=== PATIENT | male | born 1955 | race Hispanic/Latino ===

== ENCOUNTER 2018-10-12 09:48 | Emergency (ER) | payer OTHER ==
[2018-10-12] MEDS ORDERED: SODIUM CHLORIDE 0.9% 1000ML 1,000 ML IV ONE ×2 (10:01→10:59)
[2018-10-12] MEDS ORDERED: ONDANSETRON HCL 4 MG/2 ML VIAL ONE (10:01)
[2018-10-12 10:07] LABS: BASOPHILS % (AUTO) 0.3 % (0.0-5.0); EOSINOPHILS % (AUTO) 1.7 % (0.0-8.0); HEMATOCRIT 50.2 % (42-54); LYMPHOCYTES % (AUTO) 16.6 % (21.0-51.0); MEAN CORPUSCULAR HEMOGLOBIN 30.5 pg (27.0-33.0); MEAN CORPUSCULAR HGB CONC 34.3 g/dL (32.0-36.0); MONOCYTES % (AUTO) 8.2 % (3.0-13.0); NEUTROPHILS % (AUTO) 73.2 % (40.0-77.0); NUCLEATED RED BLOOD CELLS 0.1 % (0.0-0.19); PLATELET COUNT (AUTO) 196 K/uL (130-400); RED BLOOD CELL COUNT(AUTO) 5.64 MIL/uL (4.50-6.20); RED CELL DISTRIBUTION WIDTH 13.7 % (11.0-15.5); WHITE BLOOD COUNT (AUTO) 12.3 K/uL (4.8-10.8)
[2018-10-12 10:11] LABS: APPEARANCE,URINE Cloudy (CLEAR); BILIRUBIN,URINE Negative (NEGATIVE); COLOR,URINE Dark Yellow (YELLOW); GLUCOSE, URINE (UA) Negative (NEGATIVE); KETONES,URINE Trace mg/dL (NEGATIVE); LEUKOCYTE ESTERASE ,URINE Trace (NEGATIVE); NITRATE,URINE Negative (NEGATIVE); OCCULT BLOOD,URINE Negative (NEGATIVE); PH,URINE 5.5 (5.0-8.0); PROTEIN,URINE POS 1+ mg/dL (NEGATIVE)
[2018-10-12 10:14] LABS: POTASSIUM 4.2 mmol/L (3.5-5.1)
[2018-10-12 10:19] LABS: ALBUMIN 4.4 g/dL (3.5-5.0); BILIRUBIN,TOTAL 0.7 mg/dL (0.2-1.0)
[2018-10-12 10:23] LABS: BACTERIA,URINE Few /HPF (None Seen); MUCUS,URINE Many LPF (None Seen); RBC,URINE 0-1 /HPF (0-1); SQUAMOUS EPITHELIAL CELL,UR 0-2 /HPF (0-2)
== END 2018-10-12 12:54 | disposition home or self-care (01) ==
LOC: EDH 09:48
DX: K52.9 Noninfective gastroenteritis and colitis, unspecified (principal); I10 Essential (primary) hypertension; E78.5 Hyperlipidemia, unspecified; G20 Parkinson's disease
CPT/HCPCS: 36415; 80053; 81001; 83690; 85025; 93005; 96361; 96374; 99285; J2405; J7030 ×2

== ENCOUNTER 2021-05-13 19:26 | Emergency (ER) | payer OTHER ==
[~2021-05-13] VITALS: Ht 177.8 cm; Wt 104.3 kg
[2021-05-13 20:36] LABS: HEMATOCRIT 45.7 % (42-54); MEAN CORPUSCULAR HEMOGLOBIN 28.8 pg (27.0-33.0); RED BLOOD CELL COUNT(AUTO) 5.25 MIL/uL (4.50-6.20); RED CELL DISTRIBUTION WIDTH 13.3 % (11.0-15.5); WHITE BLOOD COUNT (AUTO) 8.5 K/uL (4.8-10.8)
[2021-05-13 20:39] LABS: APPEARANCE,URINE Clear (CLEAR); BILIRUBIN,URINE Negative (NEGATIVE); COLOR,URINE Yellow (YELLOW); GLUCOSE, URINE (UA) Negative (NEGATIVE); KETONES,URINE Negative (NEGATIVE); LEUKOCYTE ESTERASE ,URINE Trace (NEGATIVE); NITRATE,URINE Negative (NEGATIVE); OCCULT BLOOD,URINE Negative (NEGATIVE); PH,URINE 5.5 (5.0-8.0); PROTEIN,URINE Negative (NEGATIVE)
[2021-05-13 20:44] LABS: BACTERIA,URINE Few /HPF (None Seen); MUCUS,URINE Rare LPF (None Seen); RBC,URINE 0-1 /HPF (0-1); SQUAMOUS EPITHELIAL CELL,UR Rare /HPF (0-2)
[2021-05-13 20:44] LABS: CREATININE 0.8 mg/dL (0.5-1.5); POTASSIUM 4.2 mmol/L (3.5-5.1)
[2021-05-13 20:50] LABS: ALBUMIN 3.9 g/dL (3.5-5.0); BILIRUBIN,TOTAL 0.3 mg/dL (0.2-1.0); TOTAL PROTEIN, SERUM 7.8 g/dL (6.0-8.3)
[2021-05-13] MEDS ORDERED: IBUP-2077 PO (22:05)
[2021-05-13 22:06] VITALS: BP 125/78
== END 2021-05-13 22:18 | disposition home or self-care (01) ==
LOC: EDH 19:26
DX: U07.1 COVID-19 (principal); R53.1 Weakness; I10 Essential (primary) hypertension; E78.00 Pure hypercholesterolemia, unspecified; Z98.890 Other specified postprocedural states; Z79.899 Other long term (current) drug therapy
CPT/HCPCS: 36415; 70450; 80053; 81001; 83690; 85027; 87635; 87804 ×2; 93005; 99285; C9803

== ENCOUNTER → 2023-03-16 | Outpatient (CLI) | payer OTHER, MEDICARE ==
[~2023-03-16] MED LIST: IBUP-2077 PO
== END | disposition home or self-care (01) ==
LOC: RAH 12:51
PROVIDERS: ATTEND Internal Medicine Gastroenterology
DX: R13.10 Dysphagia, unspecified (principal); R63.30 Feeding difficulties, unspecified; R10.30 Lower abdominal pain, unspecified
CPT/HCPCS: 74230; 92611

== ENCOUNTER → 2023-12-29 | Outpatient (CLI) | payer OTHER, MEDICARE ==
[~2023-12-29] VITALS: Ht 177.8 cm; Wt 97.3 kg
[~2023-12-29] MED LIST changes: +AEC81 PO; +BACL5TAB PO; +CARB1TAB42 PO; +CITA10TA89 PO; +DOCU100C33 PO; +FLUT16H NASAL; +GABA300C PO; +HYDR-3830 PO; +IBUP-2070 PO; +INVANZ 1GM+NS 50ML IVPB 50 ML IV ONE; +LEVE500T19 PO; +LEVE500T98 PO; +LISI30TA4 PO; +MIRA25TA PO; +PRAV10TA39 PO; +ROTI1PAT8 TD
[2023-12-29 16:08] LABS: BASOPHILS # (AUTO) 0.03 K/uL (0.00-0.20); BASOPHILS % (AUTO) 0.5 % (0.0-5.0); EOSINOPHILS # (AUTO) 0.24 K/uL (0.00-0.70); EOSINOPHILS % (AUTO) 4.4 % (0.0-8.0); HEMATOCRIT 42.2 % (42-54); IMMATURE GRANULOCYTE ABSOLUTE 0.01 K/uL (0-1); LYMPHOCYTES # (AUTO) 1.1 K/uL (1.0-4.8); LYMPHOCYTES % (AUTO) 19.6 % (21.0-51.0); MEAN CORPUSCULAR HEMOGLOBIN 31.2 pg (27.0-33.0); MEAN CORPUSCULAR HGB CONC 34.4 g/dL (32.0-36.0); MEAN CORPUSCULAR VOLUME 90.8 fL (79-99); MONOCYTES # (AUTO) 0.5 K/uL (0.1-1.0); MONOCYTES % (AUTO) 9.7 % (3.0-13.0); NEUTROPHILS # (AUTO) 3.6 K/uL (1.8-7.7); NEUTROPHILS % (AUTO) 65.6 % (40.0-77.0); PLATELET COUNT (AUTO) 145 K/uL (130-400); RED BLOOD CELL COUNT(AUTO) 4.65 MIL/uL (4.50-6.20); RED CELL DISTRIBUTION WIDTH 13.2 % (11.0-15.5); WHITE BLOOD COUNT (AUTO) 5.5 K/uL (4.8-10.8)
[2023-12-29 16:21] LABS: INR 1.04 (0.85-1.15); PROTHROMBIN TIME 11.2 SEC (9.6-11.6)
[2023-12-29 16:22] LABS: PARTIAL THROMBOPLASTIN TIME 26.8 SEC (26.3-35.5)
[2023-12-29 16:23] LABS: ALBUMIN 3.9 g/dL (3.5-5.0); BILIRUBIN,TOTAL 0.7 mg/dL (0.2-1.0); CREATININE 0.8 mg/dL (0.5-1.3); POTASSIUM 4.1 mmol/L (3.5-5.1); TOTAL PROTEIN, SERUM 7.4 g/dL (6.0-8.3)
[2023-12-29 16:44] VITALS: BP 140/88; PULSE 60; RESP 16; TEMP 98.2
== END | disposition home or self-care (01) ==
LOC: DAH 10:00 → EDSTATUS 01-05 07:30
PROVIDERS: ATTEND Surgery
DX: R00.1 Bradycardia, unspecified (principal); C20 Malignant neoplasm of rectum; Z86.2 Personal history of diseases of the blood and blood-forming organs and certain disorders involving the immune mechanism
CPT/HCPCS: 86900; 80053; 85025; 85610; 85730; 86850; 86901; 36415; 93005; A6260; J1335

== ENCOUNTER 2024-01-17 15:00 | Inpatient (IN) | payer OTHER, MEDICARE ==
[~2024-01-17] VITALS: Ht 177.8 cm; Wt 96.6 kg
[~2024-01-17 15:00] MED LIST changes: -FLUT16H NASAL; -IBUP-2070 PO; -IBUP-2077 PO; -INVANZ 1GM+NS 50ML IVPB 50 ML IV ONE; -LEVE500T98 PO
[2024-01-21 13:02] LABS: BASOPHILS # (AUTO) 0.04 K/uL (0.00-0.20); BASOPHILS % (AUTO) 0.7 % (0.0-5.0); EOSINOPHILS # (AUTO) 0.12 K/uL (0.00-0.70); EOSINOPHILS % (AUTO) 2.1 % (0.0-8.0); HEMATOCRIT 43.6 % (42-54); IMMATURE GRANULOCYTE ABSOLUTE 0.01 K/uL (0-1); LYMPHOCYTES # (AUTO) 1.1 K/uL (1.0-4.8); LYMPHOCYTES % (AUTO) 18.9 % (21.0-51.0); MEAN CORPUSCULAR HEMOGLOBIN 30.9 pg (27.0-33.0); MEAN CORPUSCULAR HGB CONC 34.4 g/dL (32.0-36.0); MEAN CORPUSCULAR VOLUME 89.7 fL (79-99); MONOCYTES # (AUTO) 0.6 K/uL (0.1-1.0); MONOCYTES % (AUTO) 9.9 % (3.0-13.0); NEUTROPHILS % (AUTO) 68.2 % (40.0-77.0); PLATELET COUNT (AUTO) 151 K/uL (130-400); RED BLOOD CELL COUNT(AUTO) 4.86 MIL/uL (4.50-6.20); RED CELL DISTRIBUTION WIDTH 12.8 % (11.0-15.5); WHITE BLOOD COUNT (AUTO) 5.8 K/uL (4.8-10.8)
[2024-01-21 13:05] VITALS: BP 139/84; PULSE 64; RESP 16; TEMP 97.3
[2024-01-21 13:07] LABS: INR 1.07 (0.85-1.15); PROTHROMBIN TIME 11.5 SEC (9.6-11.6)
[2024-01-21 13:09] LABS: PARTIAL THROMBOPLASTIN TIME 27.7 SEC (26.3-35.5)
[2024-01-21 13:11] LABS: ALBUMIN 4.1 g/dL (3.5-5.0); BILIRUBIN,TOTAL 0.7 mg/dL (0.2-1.0); CREATININE 0.8 mg/dL (0.5-1.3); POTASSIUM 4.2 mmol/L (3.5-5.1); TOTAL PROTEIN, SERUM 7.7 g/dL (6.0-8.3)
[2024-01-21] MEDS ORDERED: LACT10SO9 PO (14:17)
[2024-01-25] VITALS (29 sets, daily range): BP systolic 124–150; BP diastolic 63–89; PULSE 64–95; RESP 14–20; TEMP 97.1–98.2; O2SAT 95–100
[2024-01-25] MEDS: LIDOCAINE HCL 1% 10 ML VIAL ONE
[2024-01-25] MEDS: BUPIvacaine/PF 0.25% 30ML VIAL IJ ONE
[2024-01-25] MEDS: LIDOCAINE HCL 1% 20 ML VIAL ONE
[2024-01-25] MEDS: EPINEPHrine PF 1MG (1:1,000) 1 MG/ML AMP ONE
[2024-01-25] MEDS: FAMOTIDINE 20MG VIAL IV ONE (08:10)
[2024-01-25] MEDS: acetaMINOPHEN 1,000 MG/100 ML VIAL IV ONE (08:10)
[2024-01-25] MEDS ORDERED: ketaMINE 50MG/ML SYRINGE 50 MG/ML DISP.SYRIN ONE (08:11)
[2024-01-25] MEDS ORDERED: rocuRONium bROMide 10MG/1ML 5ML VL ONE ×2 (08:12→09:16)
[2024-01-25] MEDS ORDERED: proPOFol 10 MG/ML 20ML VIAL IV ONE (08:12)
[2024-01-25] MEDS ORDERED: FENTanyl CITRate PF 50 MCG/1 ML 2ML VIAL ONE (08:12)
[2024-01-25] MEDS ORDERED: LIDOCAINE PF 100MG/5ML (2%) SYRINGE 5ML ONE (08:12)
[2024-01-25] MEDS: LACTATED RINGERS 1000ML 1,000 ML IV ONE (08:27)
[2024-01-25] MEDS ORDERED: dexaMETHasone SOD PHOSPHATE 10MG/ML 1ML VIAL ONE (08:47)
[2024-01-25] MEDS ORDERED: ondanSETRON 4MG INJ ONE (08:47)
[2024-01-25] MEDS ORDERED: MIDAZOLAM HCL 1 MG/ML 2ML VIAL ONE (08:52)
[2024-01-25] MEDS ORDERED: ePHEDrine SULFate 50 MG/ML AMPULE ONE (08:56)
[2024-01-25] MEDS: MEROPENEM 1 GM VIAL ONE (09:00)
[2024-01-25] MEDS: INDOCYANINE GREEN 25 MG VIAL IJ ONE (10:44)
[2024-01-25] MEDS ORDERED: GLYCOPYRROLATE 0.2 MG/ML 5 ML VIAL ONE (12:07)
[2024-01-25] MEDS ORDERED: NEOSTIGMINE METHYLSULFATE 1MG/ML IV ONE (12:07)
[2024-01-25] MEDS ORDERED: ondanSETRON 4MG INJ IVP PRN (13:30)
[2024-01-25] MEDS ORDERED: INSULIN humuLIN R 100 UNIT/ML 3ML SQ PRN (13:30)
[2024-01-25] MEDS: FENTanyl CITRate PF 50 MCG/1 ML 2ML VIAL ONE (13:37)
[2024-01-25] MEDS: hydroMORPHone 0.5 MG SYG (0.5MG/0.5ML) IVP PRN (15:53)
[2024-01-25] MEDS: OXYcodONE HCL 5 MG TAB PO PRN (18:05)
[2024-01-25] MEDS: acetaMINOPHEN 325 MG TAB PO SCH (18:06)
[2024-01-25] MEDS ORDERED: hydroMORPHone 1 MG INJ IVP ONE (20:00)
[2024-01-25] MEDS ORDERED: hydrOXYzine 10 MG TABLET PO PRN (20:00)
[2024-01-25] MEDS: hydroMORPHone 1 MG INJ IVP ONE (20:03)
[2024-01-25] MEDS: BACLOFEN 10 MG TABLET PO SCH (21:50)
[2024-01-25] MEDS: GABApentin 100 MG CAPSULE PO SCH (21:50)
[2024-01-25] MEDS: CARBIDOPA/LEVODOPA ER 50-200 1 EACH TABLET.ER PO SCH (21:50)
[2024-01-25] MEDS: simVASTatin 10 MG TABLET PO SCH (21:50)
[2024-01-25] MEDS: leveTIRACEtam 500 MG TABLET PO SCH (21:50)
[2024-01-25] MEDS: PANTOPrazole 40 MG/VIAL IVP SCH (21:51)
[2024-01-25] MEDS: LACTATED RINGERS 1000ML 1,000 ML IV SCH (22:05)
[2024-01-26 04:00] VITALS: BP 144/76; PULSE 71; RESP 20; TEMP 97.8
[2024-01-26 05:16] LABS: BASOPHILS # (AUTO) 0.02 K/uL (0.00-0.20); BASOPHILS % (AUTO) 0.2 % (0.0-5.0); HEMATOCRIT 39.1 % (42-54); IMMATURE GRANULOCYTE ABSOLUTE 0.03 K/uL (0-1); LYMPHOCYTES # (AUTO) 0.8 K/uL (1.0-4.8); LYMPHOCYTES % (AUTO) 8.1 % (21.0-51.0); MEAN CORPUSCULAR HEMOGLOBIN 31.4 pg (27.0-33.0); MEAN CORPUSCULAR HGB CONC 34.3 g/dL (32.0-36.0); MEAN CORPUSCULAR VOLUME 91.6 fL (79-99); MONOCYTES # (AUTO) 1.1 K/uL (0.1-1.0); MONOCYTES % (AUTO) 11.1 % (3.0-13.0); NEUTROPHILS % (AUTO) 80.3 % (40.0-77.0); PLATELET COUNT (AUTO) 135 K/uL (130-400); RED BLOOD CELL COUNT(AUTO) 4.27 MIL/uL (4.50-6.20); RED CELL DISTRIBUTION WIDTH 12.7 % (11.0-15.5); WHITE BLOOD COUNT (AUTO) 9.9 K/uL (4.8-10.8)
[2024-01-26 05:26] LABS: CREATININE 0.9 mg/dL (0.5-1.3)
[2024-01-26] MEDS: ENOXAPARIN SODIUM 40 MG/0.4 ML SYRINGE SQ SCH (05:38)
[2024-01-26 08:00] VITALS: BP 130/86; PULSE 87; RESP 18; TEMP 97.8
[2024-01-26] MEDS: MIRABEGRON 25 MG PO SCH (09:00)
[2024-01-26] MEDS: ROTIGOTINE TD SCH (09:00)
[2024-01-26] MEDS: LISINOPRIL 10 MG TABLET PO SCH (09:30)
[2024-01-26] MEDS: citaLOPram 20 MG TABLET PO SCH (09:32)
[2024-01-26 09:35] VITALS: O2SAT 100
[2024-01-26 12:00] VITALS: BP 131/82; PULSE 68; RESP 18; TEMP 97.9
[2024-01-26 16:00] VITALS: BP 127/73; PULSE 70; RESP 18; TEMP 98.1
[2024-01-26 20:00] VITALS: BP 113/78; PULSE 66; RESP 18; TEMP 97.4; O2SAT 100
[2024-01-27] VITALS (8 sets, daily range): BP systolic 90–136; BP diastolic 60–83; PULSE 59–74; RESP 18; TEMP 97.5–98.5; O2SAT 100
[2024-01-27 06:14] LABS: BASOPHILS # (AUTO) 0.03 K/uL (0.00-0.20); BASOPHILS % (AUTO) 0.4 % (0.0-5.0); EOSINOPHILS # (AUTO) 0.08 K/uL (0.00-0.70); EOSINOPHILS % (AUTO) 1.2 % (0.0-8.0); IMMATURE GRANULOCYTE ABSOLUTE 0.02 K/uL (0-1); LYMPHOCYTES # (AUTO) 0.8 K/uL (1.0-4.8); LYMPHOCYTES % (AUTO) 12.3 % (21.0-51.0); MEAN CORPUSCULAR HEMOGLOBIN 31.3 pg (27.0-33.0); MEAN CORPUSCULAR HGB CONC 34.3 g/dL (32.0-36.0); MEAN CORPUSCULAR VOLUME 91.1 fL (79-99); MONOCYTES # (AUTO) 0.6 K/uL (0.1-1.0); MONOCYTES % (AUTO) 9.5 % (3.0-13.0); NEUTROPHILS # (AUTO) 5.2 K/uL (1.8-7.7); NEUTROPHILS % (AUTO) 76.3 % (40.0-77.0); PLATELET COUNT (AUTO) 111 K/uL (130-400); RED BLOOD CELL COUNT(AUTO) 4.06 MIL/uL (4.50-6.20); RED CELL DISTRIBUTION WIDTH 12.7 % (11.0-15.5); WHITE BLOOD COUNT (AUTO) 6.8 K/uL (4.8-10.8)
[2024-01-27 06:15] LABS: CREATININE 0.8 mg/dL (0.5-1.3); POTASSIUM 3.7 mmol/L (3.5-5.1)
[2024-01-27] MEDS: DIPHENOXYLATE HCL/ATROPINE 2.5/0.025 MG TAB PO SCH (06:25)
[2024-01-28 00:14] VITALS: BP 116/63; PULSE 60; RESP 18; TEMP 97.9
[2024-01-28 04:22] VITALS: BP 115/70; PULSE 56; RESP 18; TEMP 98.2
[2024-01-28 06:04] LABS: BASOPHILS # (AUTO) 0.02 K/uL (0.00-0.20); BASOPHILS % (AUTO) 0.3 % (0.0-5.0); EOSINOPHILS # (AUTO) 0.15 K/uL (0.00-0.70); EOSINOPHILS % (AUTO) 2.5 % (0.0-8.0); HEMATOCRIT 36.2 % (42-54); IMMATURE GRANULOCYTE ABSOLUTE 0.02 K/uL (0-1); LYMPHOCYTES # (AUTO) 0.8 K/uL (1.0-4.8); LYMPHOCYTES % (AUTO) 14.1 % (21.0-51.0); MEAN CORPUSCULAR HEMOGLOBIN 31.2 pg (27.0-33.0); MEAN CORPUSCULAR HGB CONC 34.3 g/dL (32.0-36.0); MEAN CORPUSCULAR VOLUME 91.2 fL (79-99); MONOCYTES # (AUTO) 0.6 K/uL (0.1-1.0); MONOCYTES % (AUTO) 9.2 % (3.0-13.0); NEUTROPHILS # (AUTO) 4.4 K/uL (1.8-7.7); NEUTROPHILS % (AUTO) 73.6 % (40.0-77.0); PLATELET COUNT (AUTO) 114 K/uL (130-400); RED BLOOD CELL COUNT(AUTO) 3.97 MIL/uL (4.50-6.20); RED CELL DISTRIBUTION WIDTH 12.5 % (11.0-15.5)
[2024-01-28 06:10] LABS: CREATININE 0.8 mg/dL (0.5-1.3); POTASSIUM 3.3 mmol/L (3.5-5.1)
[2024-01-28 07:50] VITALS: BP 112/70; PULSE 55; RESP 18; TEMP 97.7
[2024-01-28 08:00] VITALS: O2SAT 95
[2024-01-28 10:39] VITALS: TEMP 97.7
== END 2024-01-28 11:45 | DRG 331 ==
LOC: DAHIP 01-25 08:07 → 3DH 01-25 14:15
PROVIDERS: ADMIT Surgery; ATTEND Surgery
PROC: 0DTP4ZZ Resection of Rectum, Percutaneous Endoscopic Approach (ICD-10-PCS; 2024-01-25)
PROC: 8E0W4CZ Robotic Assisted Procedure of Trunk Region, Percutaneous Endoscopic Approach (ICD-10-PCS; 2024-01-25)
PROC: 0D1B4Z4 Bypass Ileum to Cutaneous, Percutaneous Endoscopic Approach (ICD-10-PCS; principal; 2024-01-25 08:35)
DX: C20 Malignant neoplasm of rectum (principal); R73.9 Hyperglycemia, unspecified; R13.10 Dysphagia, unspecified; K29.70 Gastritis, unspecified, without bleeding; D50.9 Iron deficiency anemia, unspecified; I10 Essential (primary) hypertension; G20.A1 Parkinson's disease without dyskinesia, without mention of fluctuations; F32.A Depression, unspecified; Z80.0 Family history of malignant neoplasm of digestive organs; Z86.19 Personal history of other infectious and parasitic diseases; Z80.42 Family history of malignant neoplasm of prostate
CPT/HCPCS: 36415; 45330; 80048; 80053; 82948; 85025; 85610; 85730; 86850; 86900; 86901; 93005; A4344; G0378; J0171; J1100; J1170; J1650; J2001; J2185; J2250; J2405; J2470; J2704; J2710; J3010; J3490; J7030; J7120; A4215; A4216; A4221; A4222; A4223; A4600; A4649; A4663; A4930; A6260; C1769; J0665

== ENCOUNTER 2024-04-14 13:00 | Inpatient (IN) | payer OTHER, MEDICARE ==
[2024-04-13 13:19] LABS: BASOPHILS # (AUTO) 0.03 K/uL (0.00-0.20); BASOPHILS % (AUTO) 0.5 % (0.0-5.0); EOSINOPHILS # (AUTO) 0.13 K/uL (0.00-0.70); EOSINOPHILS % (AUTO) 2.4 % (0.0-8.0); HEMATOCRIT 38.8 % (42-54); IMMATURE GRANULOCYTE ABSOLUTE 0.01 K/uL (0-1); LYMPHOCYTES % (AUTO) 17.2 % (21.0-51.0); MEAN CORPUSCULAR HEMOGLOBIN 30.9 pg (27.0-33.0); MEAN CORPUSCULAR HGB CONC 34.3 g/dL (32.0-36.0); MONOCYTES # (AUTO) 0.5 K/uL (0.1-1.0); MONOCYTES % (AUTO) 8.7 % (3.0-13.0); NEUTROPHILS # (AUTO) 3.9 K/uL (1.8-7.7); PLATELET COUNT (AUTO) 142 K/uL (130-400); RED BLOOD CELL COUNT(AUTO) 4.31 MIL/uL (4.50-6.20); RED CELL DISTRIBUTION WIDTH 13.4 % (11.0-15.5); WHITE BLOOD COUNT (AUTO) 5.5 K/uL (4.8-10.8)
[2024-04-13 13:32] LABS: INR 1.02 (0.85-1.15)
[2024-04-13 13:33] LABS: PARTIAL THROMBOPLASTIN TIME 25.1 SEC (26.3-35.5)
[2024-04-13 13:40] LABS: ALBUMIN 3.8 g/dL (3.5-5.0); POTASSIUM 4.3 mmol/L (3.5-5.1); TOTAL PROTEIN, SERUM 7.3 g/dL (6.0-8.3)
[2024-04-13 13:53] VITALS: BP 100/72; PULSE 68; RESP 19; TEMP 97.6
--- NOTE | 2024-04-13 14:04 | EKG ---
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
[~2024-04-14] VITALS: Ht 175.3 cm; Wt 98.9 kg
[~2024-04-14 13:00] MED LIST changes: +DIPH-1150 PO; -DOCU100C33 PO; -GABA300C PO; -HYDR-3830 PO; -LISI30TA4 PO; -ROTI1PAT8 TD
--- NOTE | 2024-04-17 16:42 | NUR ---
report reported ekg to dr jamison. ok to proceed
[2024-04-18] VITALS (31 sets, daily range): BP systolic 110–145; BP diastolic 63–91; PULSE 60–89; RESP 14–18; TEMP 97.5–98.3; O2SAT 97
[2024-04-18] MEDS ORDERED: SUCCINYLCHOLINE CHLORIDE 20 MG/ML 10 ML VIAL ONE (09:25)
[2024-04-18] MEDS ORDERED: proPOFol 10 MG/ML 20ML VIAL IV ONE (09:25)
[2024-04-18] MEDS ORDERED: GLYCOPYRROLATE 0.2 MG/ML 5 ML VIAL ONE (09:25)
[2024-04-18] MEDS ORDERED: LIDOCAINE PF 100MG/5ML (2%) SYRINGE 5ML ONE (09:25)
[2024-04-18] MEDS ORDERED: ondanSETRON 4MG INJ ONE (09:25)
[2024-04-18] MEDS ORDERED: NEOSTIGMINE METHYLSULFATE 1MG/ML IV ONE (09:25)
[2024-04-18] MEDS ORDERED: dexaMETHasone SOD PHOSPHATE 10MG/ML 1ML VIAL ONE (09:25)
[2024-04-18] MEDS ORDERED: FENTanyl CITRate PF 50 MCG/1 ML 2ML VIAL ONE (09:26)
[2024-04-18] MEDS ORDERED: rocuRONium bROMide 10MG/1ML 5ML VL ONE ×2 (09:26→11:31)
[2024-04-18] MEDS ORDERED: MIDAZOLAM HCL 1 MG/ML 2ML VIAL ONE (09:26)
[2024-04-18] MEDS ORDERED: LISI10TA24 PO (09:42)
[2024-04-18] MEDS: MEROPENEM 1 GM VIAL ONE (09:42)
[2024-04-18] MEDS: LACTATED RINGERS 1000ML 1,000 ML IV ONE (09:43)
[2024-04-18] MEDS: FAMOTIDINE 20MG VIAL IV ONE (11:22)
[2024-04-18] MEDS: SUGAMMADEX SODIUM 200 MG/2 ML VIAL IV ONE (11:22)
[2024-04-18] MEDS: BUPIvacaine/PF 0.25% 30ML VIAL IJ ONE (12:23)
[2024-04-18] MEDS: LIDOCAINE 1%-EPI 1:100,000 20 ML VIAL ONE (12:23)
[2024-04-18] MEDS: FENTanyl CITRate PF 50 MCG/1 ML 2ML VIAL ONE ×2 (13:38→14:15)
[2024-04-18] MEDS ORDERED: INSULIN humuLIN R 100 UNIT/ML 3ML SQ PRN (14:00)
[2024-04-18] MEDS: LACTATED RINGERS 1000ML 1,000 ML IV SCH (14:00)
[2024-04-18] MEDS: acetaMINOPHEN 325 MG TAB PO SCH (14:00)
[2024-04-18] MEDS ORDERED: HYDROcodone/APAP 5/325 1 TAB TABLET PO PRN (14:00)
[2024-04-18] MEDS ORDERED: ondanSETRON 4MG INJ IVP PRN ×2 (14:00→16:00)
[2024-04-18] MEDS: hydroMORPHone 1 MG INJ ONE (14:26)
[2024-04-18] MEDS ORDERED: PoTASSium chloRIDE 20MEQ ER 20 MEQ ERTAB PO PRN (16:00)
[2024-04-18] MEDS ORDERED: hydrALAZine 20MG/ML VIAL IV PRN (16:00)
[2024-04-18] MEDS ORDERED: acetaMINOPHEN 325 MG TAB PO PRN (16:00)
[2024-04-18] MEDS ORDERED: PoTASSium chl 10% ELIXIR 20MEQ 20 MEQ/15 ML UDCUP PO PRN (16:00)
[2024-04-18] MEDS ORDERED: PoTASSium chloRIDE 20MEQ/100ML 100 ML IV PRN (16:00)
--- NOTE | 2024-04-18 16:27 | CONS ---
[facility] CONSULTATION NOTE Date of Service: Apr 18, 2024 Reason for Consultation: [ Medical Management] Requesting Physician: [Dr. Ignacio Ramos ] HISTORY OF PRESENT ILLNESS: [This is a 68-year-old male with history of malignant neoplasm of the rectum that was seen and examined by [place] digestive specialist who is being admitted today status post ileostomy closure and small-bowel resection. Patient has past medical history of hypertension, Parkinson's disease, depression, hyperlipidemia, gastritis, polyps, H pylori, seizure disorder, iron deficiency anemia, dysphagia, benign neoplasm of descending colon, chronic idiopathic constipation. Patient is hemodynamically stable. He was referred to the hospitalist for medical management. Patient was evaluated in room 301. He is alert oriented x3. we will follow recommendations and post op orders from Dr. Ramos.] REVIEW OF SYSTEMS CONSTITUTIONAL: Denies fevers, chills, or night sweats. No unintentional weight loss reported. NEUROLOGICAL: Denies headache, amaurosis fugax, motor weakness, sensory deficit, vertigo/spinning sensation, gait abnormalities, or tremors. ENT: No hearing loss, otalgia, otorrhea, rhinitis, rhinorrhea, hoarseness, or sore throat. CARDIOVASCULAR: Denies any exertional angina, dyspnea on exertion, orthopnea, paroxysmal nocturnal dyspnea, palpitations, life-threatening arrhythmias, claudication. PULMONARY: Denies any shortness of breath, cough, phlegm/sputum, hemoptysis, pleuritic chest pain. SLEEP: Denies morning headaches, daytime somnolence or napping. Denies difficulty falling asleep, staying asleep, waking from sleep. Denies knowledge of snoring. GASTROINTESTINAL: Denies any type of dysphagia to either liquids or solids. Denies nausea, vomiting, pyrosis, early satiety, abdominal pain, diarrhea, co nstipation, or changes in stool consistency or caliber. Denies coffee-ground emesis, hematemesis, hematochezia, or melanotic stools. GENITOURINARY: Denies frequency, urgency, nocturia, hematuria or incontinence (Storage/Irritative symptoms.) Low urinary stream, straining to void, urinary intermittency or hesitancy, splitting of the voiding stream, terminal dribbling. ENDOCRINOLOGIC: Denies polyuria, polydipsia, polyphagia or heat/cold intolerances. HEMATOLOGIC: Denies thrombophilia/previous clots, or coagulopathy/bleeding disorders. ONCOLOGIC: Denies personal history of malignancy. DERMATOLOGIC: Denies rashes or pruritus. PSYCHIATRIC: Denies any suicidal or homicidal ideation. Denies hallucinations. PAST MEDICAL HISTORY: [Hypertension, Parkinson's disease, depression, hyperlipidemia, gastritis, polyps, H pylori, seizure disorder, iron deficiency anemia, dysphagia common benign neoplasm of the ascending colon, chronic idiopathic constipation ] PAST SURGICAL HISTORY: [Neurostimulator implant for Parkinson's, EGD/colonoscopy on 01/25/2023, EUS/ flex sigmoid 03/02/2023, flex sigmoid for 1124, EUS 11/25/2023, LAR 01/25/24 ] PAST SOCIAL HISTORY: [Patient denies tobacco, alcohol or illicit drug use ] FAMILY HISTORY: [Noncontributory ] Coded Allergies: No Known Allergies (Unverified Allergy, Unknown, 10/12/18) PHYSICAL EXAM GENERAL APPEARANCE: The patient is awake, alert, and oriented, in no acute cardiopulmonary distress. NEUROLOGICAL: Cranial nerves II-XII grossly intact. Motor is 5/5 in bilateral upper and lower extremities proximal to distal. No sensory deficits. HEENT: Face is symmetric. Pupils are equal and reactive. Extraocular movements are intact. NECK: Supple. No JVD. No thyromegaly. No submental, submandibular, pre- /postauricular, occipital or supraclavicular lymphadenopathy. CHEST: Normal chest expansion. No Telemetry. LUNGS: Absence of any rales, rhonchi or any wheezing. CARDIOVASCULAR: Regular. S1 and S2 normal. No appreciable rubs, murmurs or gallops. ABDOMEN: Soft, nontender, and nondistended. There is no rebound, voluntary guarding, or rigidity. : Deferred. No [place]. EXTREMITIES: Non-edematous and not cyanotic. No clubbing. Good capillary refill. SKIN: No skin breakdown. Vital Sign (Last 24 Hours) 04/18/24 04/18/24 13:19 15:19 Temp 97.5 Pulse 79 Resp 16 B/P (MAP) 116/65 Pulse Ox 98 O2 Delivery Nasal Cannula O2 Flow Rate 2.0 LABS: DIAGNOSTICS / RADIOLOGY: [ ] ASSESSMENT: [Malignant neoplasm of rectum, status post closure of ileostomy small bowel resection POA Enterostomy complication, POA ] PLAN: [Admit to medical floor Status post ileostomy closure and smile bowel resection We will follow postop recommendations from surgeon Continue with pain management Home medication has been reviewed and reconciled We will request stat labs now We will request morning labs in a.m. GI and DVT prophylaxis Patient is a full code Patient was seen and evaluated with Dr. Spencer, above plan was formulated] ADVANCED CARE PLANNING 1. Which of the following were discussed? Hospice Care - Yes / No Therapeutic options - Yes / No Advance Directives - Yes / No Other discussions - 2. Discussed with who? Full code 3. Voluntary nature of this service was explained to the patient? Yes / No 4. Amount of time spent - __20 mins 5. Reviewed by Physician? (if this service was performed by NPP) Yes / No ATTESTATION BY PHYSICIAN I have seen and examined the patient. I reviewed the documentation, medical decision making, and treatment plan as noted by the mid-level provider above. I agree with the findings and plan of care. RIVER SPENCER MD, [facility] Apr 18, 2024 16:27
[2024-04-18 17:04] LABS: HEMATOCRIT 37.1 % (42-54); MEAN CORPUSCULAR HEMOGLOBIN 30.8 pg (27.0-33.0); MEAN CORPUSCULAR HGB CONC 34.8 g/dL (32.0-36.0); MEAN CORPUSCULAR VOLUME 88.5 fL (79-99); RED BLOOD CELL COUNT(AUTO) 4.19 MIL/uL (4.50-6.20); RED CELL DISTRIBUTION WIDTH 13.3 % (11.0-15.5); WHITE BLOOD COUNT (AUTO) 7.7 K/uL (4.8-10.8)
[2024-04-18 17:22] LABS: POTASSIUM 3.9 mmol/L (3.5-5.1)
--- NOTE | 2024-04-18 17:23 | OP ---
Operative Note: DATE OF PROCEDURE: 04/18/24 SURGEON: HEBER BRASHER MD SURGICAL ATTENDANT: None ANESTHESIA: General ANESTHESIOLOGIST/METALIZER FIELD OPERATION: METALIZER FIELD OPERATION PREOPERATIVE DIAGNOSIS: Ileostomy status POSTOPERATIVE DIAGNOSIS: As above PROCEDURE: Ileostomy closure with small bowel resection ESTIMATED BLOOD LOSS: Minimal INDICATIONS: Mr. Regalado is a very pleasant 68 year old male who presents for ileostomy closure. Complications, risk, alternative and benefits were explained to the patient including but not limited to infection, bleeding, injury surrouding structures such as blood vessels nerves and other organs, recurrence of disease and need for additional procedures. The patient voiced understanding and wished to proceed with surgery. All of the patient's questions were answered to his satisfaction. DESCRIPTION OF PROCEDURE: After informed consent was obtained, the patient was taken to the operating room and laid in the supine position. Once GETA was achieved, the abdomen was prepped and draped in the usual sterile fashion. A time out was performed to confirm correct patient and procedure. Next local anesthetic was injected into the peristomal skin. Next the ileostomy site was incised leaving a small rim of skin. Dissection was carried down to release the small bowel from the surrounding tissue and fascia. We then took great care to separate the small bowel from the surrounding fascia. Once this was performed we are able to pull up an adequate amount of small bowel to perform and anastomosis. We chose two healthy segments of small bowel and performed a small bowel resection of the small bowel between these points. The mesentery was clamped and tied for hemostasis. Next using a blue load MARVIN stapler the proximal and distal small bowel were transected and the small bowel sent as specimen. Next, an allis clamp was placed onto the edge of the staple line, this was cut off and the stapler placed into the small bowel. A performed a side to side stapled small bowel anastomosis in the standard fashion. Prior to closing the common enterotomy hemostasis of the interior staple line was checked for and obtained. Next allis clamps were placed onto the common enterotomy which was closed with a TA [address] st apler. Next the staple line was oversewn. A crotch stitch was placed. Hemostasis was checked for and obtained. Next the small bowel was placed back into the abdomen. The fascia was closed with 2-0 PDS sutures. The wound was irrigated and hemostasis of the subcutaneous tissue was obtained. Next the takedown site was closed using 0 vicryl in a pursestring manner. Iodoform packing was placed into the wound and a sterile gauze dressing was placed. The patient tolerated the procedure well and was taken to the recovery room in stable condition. I went to the waiting room however was unable to find family complications None blood loss minimal counts reported as correct x2 by nursing staff Specimens: small bowel HEBER BRASHER MD Apr 18, 2024 17:23
[2024-04-18 17:26] LABS: ALBUMIN 3.6 g/dL (3.5-5.0); BILIRUBIN,TOTAL 0.9 mg/dL (0.2-1.0); MAGNESIUM 1.6 mg/dL (1.80-2.40); TOTAL PROTEIN, SERUM 6.7 g/dL (6.0-8.3)
[2024-04-18] MEDS: hydroMORPHone 0.5 MG SYG (0.5MG/0.5ML) IVP PRN (17:44)
[2024-04-18] MEDS: CARBIDOPA/LEVODOPA ER 50-200 1 EACH TABLET.ER PO SCH (21:48)
[2024-04-18] MEDS: leveTIRACEtam 500 MG TABLET PO SCH (21:48)
[2024-04-18] MEDS: atorVAStatin 10 MG TABLET PO SCH (21:48)
[2024-04-19] VITALS (7 sets, daily range): BP systolic 14–132; BP diastolic 66–83; PULSE 62–75; RESP 16–20; TEMP 97.7–98.3; O2SAT 98
[2024-04-19] MEDS: OXYcodONE HCL 5 MG TAB PO PRN (00:15)
[2024-04-19] MEDS: MAGNESIUM 2GM PREMIX 50ML 50 ML IV PRN (02:33)
[2024-04-19 05:03] LABS: BASOPHILS # (AUTO) 0.01 K/uL (0.00-0.20); BASOPHILS % (AUTO) 0.1 % (0.0-5.0); HEMATOCRIT 36.3 % (42-54); IMMATURE GRANULOCYTE ABSOLUTE 0.04 K/uL (0-1); LYMPHOCYTES # (AUTO) 0.5 K/uL (1.0-4.8); LYMPHOCYTES % (AUTO) 5.8 % (21.0-51.0); MEAN CORPUSCULAR HEMOGLOBIN 30.7 pg (27.0-33.0); MEAN CORPUSCULAR HGB CONC 34.7 g/dL (32.0-36.0); MEAN CORPUSCULAR VOLUME 88.5 fL (79-99); MONOCYTES # (AUTO) 0.6 K/uL (0.1-1.0); MONOCYTES % (AUTO) 6.1 % (3.0-13.0); NEUTROPHILS # (AUTO) 8.2 K/uL (1.8-7.7); NEUTROPHILS % (AUTO) 87.6 % (40.0-77.0); PLATELET COUNT (AUTO) 141 K/uL (130-400); RED CELL DISTRIBUTION WIDTH 13.2 % (11.0-15.5); WHITE BLOOD COUNT (AUTO) 9.3 K/uL (4.8-10.8)
[2024-04-19 05:20] LABS: ALBUMIN 3.4 g/dL (3.5-5.0); BILIRUBIN,TOTAL 1.2 mg/dL (0.2-1.0); CREATININE 0.9 mg/dL (0.5-1.3); MAGNESIUM 2.5 mg/dL (1.80-2.40); POTASSIUM 4.1 mmol/L (3.5-5.1); TOTAL PROTEIN, SERUM 6.5 g/dL (6.0-8.3)
--- NOTE | 2024-04-19 08:48 | PN ---
[facility] PROGRESS NOTE Date of Visit: Apr 19, 2024 Time of Visit: 08:46 Events / Notes: [68 yo patient with hx of rectal cancer and ileostomy in place who underwent a closure of ileostomy with small bowel resection. He is doing well this am. VSS. He is hemodynamically stable. BBS are clear. He is on O2 via nc at 2l/min. Abd is soft but tender to stoma incision site. Active bs present. He has tolerated clear fluids. Poc discussed and encouraged ambulation. Will have PT assist. Patient and spouse agree. ] Review of Systems: CONSTITUTIONAL: No malaise or change in sensation of wellbeing. ENMT: No rhinorrhea, otorrhea, sinus pain, ear ache. CARDIOVASCULAR: No angina, palpitations, orthopnea or paroxysmal dyspnea. RESPIRATORY: No SOB. GASTROINTESTINAL: No abdominal pain, nausea, vomiting, diarrhea, hematemesis, melena or change in the patient's habitual bowel movements consistency/number. GENITOURINARY: No dysuria, hematuria or change in bladder continence. MUSCULOSKELETAL: No new muscle pain or decrease in muscular strength. No new joint swelling, redness or tenderness. SKIN: No new rash. Physical Exam: GEN: Awake, alert, oriented in person, time and place, and in no acute distress. HEENT: No rhinorrhea. Oral pharyngeal mucosa is pink, moist and within normal limits. Neck is supple CHEST: Inspection, palpation of the chest were unremarkable. Lung auscultation revealed normal breath sounds bilaterally. CARDIAC: PMI is within normal limits. Heart sounds are regular. ABD: Soft, non-tender and not distended. No peritoneal signs on palpation. No organomegaly. Normal bowel sounds. Stoma site incision dry and intact. EXT: No cyanosis or clubbing. No edema. SKIN: Intact. No rashes. JOINTS: No evidence of synovitis or acute arthritis. NEURO: Alert and oriented to name, place and person. No focal motor deficits. Normal speech. Strength is normal. Vital Signs (last 8hr) Date Time Temp Pulse Resp B/P (MAP) Pulse Ox O2 Delivery O2 Flow Rate FiO2 04/19/24 08:20 97.7 69 16 119/82 98 Nasal Cannula 2.0 24 04/19/24 04:00 98.1 66 18 116/66 97 Nasal Cannula 2.0 Laboratory: [ ] Laboratory: Test 04/19/24 05:18 04/19/24 04:35 Range/Units Whole Blood Glucose 120 H 70-110 MG/DL White Blood Count 9.3 4.8-10.8 K/uL Red Blood Count 4.10 L 4.50-6.20 MIL/uL Hemoglobin 12.6 L 14.0-18.0 g/dL Hematocrit 36.3 L 42-54 % Mean Corpuscular Volume 88.5 79-99 fL Mean Corpuscular Hemoglobin 30.7 27.0-33.0 pg Mean Corpuscular Hemoglobin Concent 34.7 32.0-36.0 g/dL Red Cell Distribution Width 13.2 11.0-15.5 % Platelet Count 141 130-400 K/uL Mean Platelet Volume 10.0 7.5-10.5 fL Immature Granulocyte % (Auto) 0.4 0-1 % Neutrophils (%) (Auto) 87.6 H 40.0-77.0 % Lymphocytes (%) (Auto) 5.8 L 21.0-51.0 % Monocytes (%) (Auto) 6.1 3.0-13.0 % Eosinophils (%) (Auto) 0.0 0.0-8.0 % Basophils (%) (Auto) 0.1 0.0-5.0 % Neutrophils # (Auto) 8.2 H 1.8-7.7 K/uL Lymphocytes # (Auto) 0.5 L 1.0-4.8 K/uL Monocytes # (Auto) 0.6 0.1-1.0 K/uL Eosinophils # (Auto) 0.00 0.00-0.70 K/uL Basophils # (Auto) 0.01 0.00-0.20 K/uL Absolute Immature Granulocyte (auto 0.04 0-1 K/uL Nucleated Red Blood Cells 0.0 0.0-0.19 % White Cell Morphology Comment See comments Sodium Level 140 136-145 mmol/L Potassium Level 4.1 3.5-5.1 mmol/L Chloride Level 105 101-111 mmol/L Carbon Dioxide Level 26 21-32 mmol/L Blood Urea Nitrogen 15 7-18 mg/dL Creatinine 0.9 0.5-1.3 mg/dL Glomerular Filtration Rate Calc 93 >90 mL/min Random Glucose 116 H 70-105 mg/dL Total Calcium 8.8 8.5-10.1 mg/dL Magnesium Level 2.50 H 1.80-2.40 mg/dL Total Bilirubin 1.2 #H 0.2-1.0 mg/dL Aspartate Amino Transf (AST/SGOT) 22 10-37 U/L Alanine Aminotransferase (ALT/SGPT) 16 # 12-78 U/L Alkaline Phosphatase 101 50-136 U/L Total Protein 6.5 6.0-8.3 g/dL Albumin 3.4 L 3.5-5.0 g/dL Current Medications Medications (Trade) Dose Ordered Sig/Dilan Route PRN Reason Start Time Stop Time Status Last Admin Dose Admin Acetaminophen (TYLenol 325MG TAB) 650 mg Q6H PO 04/18/24 14:00 05/18/24 13:59 04/19/24 02:23 650 MG Acetaminophen (TYLenol 325MG TAB) 650 mg Q6H PRN PO MILD PAIN (1-3) 04/18/24 16:00 05/18/24 15:59 Acetaminophen/ Hydrocodone Bitart (NORco 5/325MG) 1 tab Q4H PRN PO MODERATE PAIN (4-6) 04/18/24 14:00 04/18/24 13:41 DC Atorvastatin Calcium (LIPItor 10MG) 5 mg HS PO 04/18/24 21:00 05/18/24 20:59 04/18/24 21:48 5 MG Carbidopa/Levodopa (Carbidopa-Levo Er 50-200 Tab) 1 each TID PO 04/18/24 21:00 05/18/24 20:59 04/18/24 21:48 1 EACH Docusate Sodium (COLace 100MG CAP) 100 mg BID PRN PO CONSTIPATION 04/18/24 16:00 05/18/24 15:59 Enoxaparin Sodium (Lovenox) 40 mg DAILY SQ 04/19/24 09:00 05/19/24 08:59 Home Med (Home Medication) Citalopram Hydrobromide 10 MG AM PO 04/19/24 09:00 05/19/24 08:59 Home Med (Home Medication) Mirabegron (Myrbetriq) 25 MG AM PO 04/19/24 09:00 05/19/24 08:59 Hydralazine HCl (APRESOLine 20MG INJ) 5 mg Q6H PRN IV ADMINISTER FOR SBP > 160 04/18/24 16:00 05/18/24 15:59 Hydromorphone HCl (DiLAUDid 0.5MG INJ) 0.5 mg Q6H PRN IVP SEVERE PAIN (7-10) 04/18/24 14:00 04/23/24 13:59 04/19/24 02:20 0.5 MG Insulin Human Regular (humuLIN R 100 UNIT/ML 3ML) AD PRN SQ SLIDING SCALE COVERAGE 04/18/24 14:00 05/18/24 13:59 Lactated Ringer's 1,000 ml @ 50 mls/hr Q20H IV 04/18/24 14:00 05/18/24 13:59 04/19/24 02:20 50 MLS/HR Levetiracetam (kepPRA 500 MG TABLET) 500 mg BID PO 04/18/24 21:00 05/18/24 20:59 04/18/24 21:48 500 MG Lisinopril (Prinivil 10mg) 10 mg DAILY PO 04/19/24 09:00 05/19/24 08:59 Magnesium Sulfate 50 ml @ 0 mls/hr PROTOCOL PRN IV hypomagnesemia 04/18/24 16:00 05/18/24 15:59 04/19/24 02:33 25 MLS/HR Ondansetron HCl (zoFRAN 4MG INJ) 4 mg Q4H PRN IVP NAUSEA 04/18/24 14:00 05/18/24 13:59 Ondansetron HCl (zoFRAN 4MG INJ) 4 mg Q6H PRN IVP NAUSEA/VOMITING 04/18/24 16:00 04/18/24 16:07 DC Oxycodone HCl (ROXicoDONE) 5 mg Q6H PRN PO MODERATE PAIN (4-6) 04/18/24 14:00 04/25/24 13:59 04/19/24 00:15 5 MG Potassium Chloride 100 ml @ 100 mls/hr AD PRN IV POTASSIUM PROTOCOL 04/18/24 16:00 05/18/24 15:59 Potassium Chloride (K-Dur/Klor-Con 20meq) 20 meq AD PRN PO POTASSIUM PROTOCOL 04/18/24 16:00 05/18/24 15:59 Potassium Chloride (KCl 10% Elixir 20meq/15ml) 20 meq AD PRN PO POTASSIUM PROTOCOL 04/18/24 16:00 05/18/24 15:59 ] Assessment: [ILEOSTOMY STATUS HX of rectal cancer ] Plan: [Advance diet Encourage ambulation Encourage I/S exercises Pain meds as needed Antiemetics prn and report any vomiting Begin removing 1-2 inches if wick packing, clean incision with NS and change dressing daily Plan for disposition in the next 24-48 hours Appreciate hospitalist's assistance. ] ZEFERINO GARCIA NP Apr 19, 2024 08:48
[2024-04-19] MEDS: LISINOPRIL 10 MG TABLET PO SCH (08:59)
[2024-04-19] MEDS: ENOXAPARIN SODIUM 40 MG/0.4 ML SYRINGE SQ SCH (09:01)
--- NOTE | 2024-04-19 16:49 | PN ---
[facility] PROGRESS NOTE Date of Service: Apr 19, 2024 Time of Service: 16:39 SUBJECTIVE: 04/19 - patient seen at bedside, continues to advance diet as tolerated, encourage ambulation, IS exercises, adequate pain control, begin removing 1-2 inches of wick packing, clean incision with normal saline and change dressings daily. Patient is afebrile normotensive saturating well on room air. Labs were within normal limits electrolytes unremarkable periods we will continue to medically manage and follow recommendations per surgery. REVIEW OF SYSTEMS CONSTITUTIONAL: Denies fevers, chills, or night sweats. No unintentional weight loss reported. NEUROLOGICAL: Denies headache, amaurosis fugax, motor weakness, sensory deficit, vertigo/spinning sensation, gait abnormalities, or tremors. ENT: No hearing loss, otalgia, otorrhea, rhinitis, rhinorrhea, hoarseness, or sore throat. CARDIOVASCULAR: Denies any exertional angina, dyspnea on exertion, orthopnea, paroxysmal nocturnal dyspnea, palpitations, life-threatening arrhythmias, claudication. PULMONARY: Denies any shortness of breath, cough, phlegm/sputum, hemoptysis, pleuritic chest pain. SLEEP: Denies morning headaches, daytime somnolence or napping. Denies difficulty falling asleep, staying asleep, waking from sleep. Denies knowledge of snoring. GASTROINTESTINAL: Denies any type of dysphagia to either liquids or solids. Denies nausea, vomiting, pyrosis, early satiety, abdominal pain, diarrhea, constipation, or changes in stool consistency or caliber. Denies coffee-ground emesis, hematemesis, hematochezia, or melanotic stools. GENITOURINARY: Denies frequency, urgency, nocturia, hematuria or incontinence (Storage/Irritative symptoms.) Low urinary stream, straining to void, urinary intermittency or hesitancy, splitting of the voiding stream, terminal dribbling. ENDOCRINOLOGIC: Denies polyuria, polydipsia, polyphagia or heat/cold intolerances. HEMATOLOGIC: Denies thrombophilia/previous clots, or coagulopathy/bleeding disorders. ONCOLOGIC: Denies personal history of malignancy. DERMATOLOGIC: Denies rashes or pruritus. PSYCHIATRIC: Denies any suicidal or homicidal ideation. Denies hallucinations. PHYSICAL EXAM GENERAL APPEARANCE: The patient is awake, alert, and oriented, in no acute cardiopulmonary distress. NEUROLOGICAL: Cranial nerves II-XII grossly intact. Motor is 5/5 in bilateral upper and lower extremities proximal to distal. No sensory deficits. HEENT: Face is symmetric. Pupils are equal and reactive. Extraocular movements are intact. NECK: Supple. No JVD. No thyromegaly. No submental, submandibular, pre- /postauricular, occipital or supraclavicular lymphadenopathy. CHEST: Normal chest expansion. No Telemetry. LUNGS: Absence of any rales, rhonchi or any wheezing. CARDIOVASCULAR: Regular. S1 and S2 normal. No appreciable rubs, murmurs or gallops. ABDOMEN: Soft, nontender, and nondistended. There is no rebound, voluntary guarding, or rigidity. : Deferred. No [place]. EXTREMITIES: Non-edematous and not cyanotic. No clubbing. Good capillary refill. SKIN: No skin breakdown. Vital Signs (last 8hr) Date Time Temp Pulse Resp B/P (MAP) Pulse Ox O2 Delivery O2 Flow Rate FiO2 04/19/24 16:37 97.7 62 17 112/68 96 Room Air 21 04/19/24 11:16 98.2 74 16 132/83 98 Room Air 21 LABS: Laboratory: Test 04/19/24 05:18 04/19/24 04:35 Range/Units Whole Blood Glucose 120 H 70-110 MG/DL White Blood Count 9.3 4.8-10.8 K/uL Red Blood Count 4.10 L 4.50-6.20 MIL/uL Hemoglobin 12.6 L 14.0-18.0 g/dL Hematocrit 36.3 L 42-54 % Mean Corpuscular Volume 88.5 79-99 fL Mean Corpuscular Hemoglobin 30.7 27.0-33.0 pg Mean Corpuscular Hemoglobin Concent 34.7 32.0-36.0 g/dL Red Cell Distribution Width 13.2 11.0-15.5 % Platelet Count 141 130-400 K/uL Mean Platelet Volume 10.0 7.5-10.5 fL Immature Granulocyte % (Auto) 0.4 0-1 % Neutrophils (%) (Auto) 87.6 H 40.0-77.0 % Lymphocytes (%) (Auto) 5.8 L 21.0-51.0 % Monocytes (%) (Auto) 6.1 3.0-13.0 % Eosinophils (%) (Auto) 0.0 0.0-8.0 % Basophils (%) (Auto) 0.1 0.0-5.0 % Neutrophils # (Auto) 8.2 H 1.8-7.7 K/uL Lymphocytes # (Auto) 0.5 L 1.0-4.8 K/uL Monocytes # (Auto) 0.6 0.1-1.0 K/uL Eosinophils # (Auto) 0.00 0.00-0.70 K/uL Basophils # (Auto) 0.01 0.00-0.20 K/uL Absolute Immature Granulocyte (auto 0.04 0-1 K/uL Nucleated Red Blood Cells 0.0 0.0-0.19 % White Cell Morphology Comment See comments Sodium Level 140 136-145 mmol/L Potassium Level 4.1 3.5-5.1 mmol/L Chloride Level 105 101-111 mmol/L Carbon Dioxide Level 26 21-32 mmol/L Blood Urea Nitrogen 15 7-18 mg/dL Creatinine 0.9 0.5-1.3 mg/dL Glomerular Filtration Rate Calc 93 >90 mL/min Random Glucose 116 H 70-105 mg/dL Total Calcium 8.8 8.5-10.1 mg/dL Magnesium Level 2.50 H 1.80-2.40 mg/dL Total Bilirubin 1.2 #H 0.2-1.0 mg/dL Aspartate Amino Transf (AST/SGOT) 22 10-37 U/L Alanine Aminotransferase (ALT/SGPT) 16 # 12-78 U/L Alkaline Phosphatase 101 50-136 U/L Total Protein 6.5 6.0-8.3 g/dL Albumin 3.4 L 3.5-5.0 g/dL Current Medications Medications (Trade) Dose Ordered Sig/Dilan Route PRN Reason Start Time Stop Time Status Last Admin Dose Admin Acetaminophen (TYLenol 325MG TAB) 650 mg Q6H PO 04/18/24 14:00 05/18/24 13:59 04/19/24 15:00 650 MG Acetaminophen (TYLenol 325MG TAB) 650 mg Q6H PRN PO MILD PAIN (1-3) 04/18/24 16:00 05/18/24 15:59 Acetaminophen/ Hydrocodone Bitart (NORco 5/325MG) 1 tab Q4H PRN PO MODERATE PAIN (4-6) 04/18/24 14:00 04/18/24 13:41 DC Atorvastatin Calcium (LIPItor 10MG) 5 mg HS PO 04/18/24 21:00 05/18/24 20:59 04/18/24 21:48 5 MG Carbidopa/Levodopa (Carbidopa-Levo Er 50-200 Tab) 1 each TID PO 04/18/24 21:00 05/18/24 20:59 04/19/24 14:58 1 EACH Docusate Sodium (COLace 100MG CAP) 100 mg BID PRN PO CONSTIPATION 04/18/24 16:00 05/18/24 15:59 Enoxaparin Sodium (Lovenox) 40 mg DAILY SQ 04/19/24 09:00 05/19/24 08:59 04/19/24 09:01 40 MG Home Med (Home Medication) Citalopram Hydrobromide 10 MG AM PO 04/19/24 09:00 05/19/24 08:59 Home Med (Home Medication) Mirabegron (Myrbetriq) 25 MG AM PO 04/19/24 09:00 05/19/24 08:59 Hydralazine HCl (APRESOLine 20MG INJ) 5 mg Q6H PRN IV ADMINISTER FOR SBP > 160 04/18/24 16:00 05/18/24 15:59 Hydromorphone HCl (DiLAUDid 0.5MG INJ) 0.5 mg Q6H PRN IVP SEVERE PAIN (7-10) 04/18/24 14:00 04/23/24 13:59 04/19/24 11:32 0.5 MG Insulin Human Regular (humuLIN R 100 UNIT/ML 3ML) AD PRN SQ SLIDING SCALE COVERAGE 04/18/24 14:00 05/18/24 13:59 Lactated Ringer's 1,000 ml @ 50 mls/hr Q20H IV 04/18/24 14:00 05/18/24 13:59 04/19/24 02:20 50 MLS/HR Levetiracetam (kepPRA 500 MG TABLET) 500 mg BID PO 04/18/24 21:00 05/18/24 20:59 04/19/24 09:00 500 MG Lisinopril (Prinivil 10mg) 10 mg DAILY PO 04/19/24 09:00 05/19/24 08:59 04/19/24 08:59 10 MG Magnesium Sulfate 50 ml @ 0 mls/hr PROTOCOL PRN IV hypomagnesemia 04/18/24 16:00 05/18/24 15:59 04/19/24 02:33 25 MLS/HR Ondansetron HCl (zoFRAN 4MG INJ) 4 mg Q4H PRN IVP NAUSEA 04/18/24 14:00 05/18/24 13:59 Ondansetron HCl (zoFRAN 4MG INJ) 4 mg Q6H PRN IVP NAUSEA/VOMITING 04/18/24 16:00 04/18/24 16:07 DC Oxycodone HCl (ROXicoDONE) 5 mg Q6H PRN PO MODERATE PAIN (4-6) 04/18/24 14:00 04/25/24 13:59 04/19/24 00:15 5 MG Potassium Chloride 100 ml @ 100 mls/hr AD PRN IV POTASSIUM PROTOCOL 04/18/24 16:00 05/18/24 15:59 Potassium Chloride (K-Dur/Klor-Con 20meq) 20 meq AD PRN PO POTASSIUM PROTOCOL 04/18/24 16:00 05/18/24 15:59 Potassium Chloride (KCl 10% Elixir 20meq/15ml) 20 meq AD PRN PO POTASSIUM PROTOCOL 04/18/24 16:00 05/18/24 15:59 DIAGNOSTICS / RADIOLOGY: [ ] ASSESSMENT: [Malignant neoplasm of rectum, status post closure of ileostomy small bowel resection POA Enterostomy complication, POA ] PLAN: medical floor Status post ileostomy closure and small bowel resection follow postop recommendations from surgeon Continue with pain management morning labs in a.m. GI and DVT prophylaxis Patient is a full code ADVANCED CARE PLANNING 1. Which of the following were discussed? Hospice Care - Yes / No Therapeutic options - Yes / No Advance Directives - Yes / No Other discussions - 2. Discussed with who? Full code 3. Voluntary nature of this service was explained to the patient? Yes / No 4. Amount of time spent - __20 mins 5. Reviewed by Physician? (if this service was performed by NPP) Yes / No ATTESTATION BY PHYSICIAN I have seen and examined the patient. I reviewed the documentation, medical decision making, and treatment plan as noted by the resident provider above. I agree with the findings and plan of care. Holland Pruitt MD, PRIYA N Apr 19, 2024 16:49
--- NOTE | 2024-04-19 17:23 | NUR ---
Discharge Planning: Information obtained from patient's spouse. Patient unable to verbally communicate. Pt. lives with spouse Brenda Regalado. Contact number is . PCP is Jackie Shepherd and preferred pharmacy is [facility]. No home health, but has provider services 30 hours weekly. DME at home is a w/c, walker, cane, bedside commode, shower chair, and hospital bed. Spouse patient is able to ambulate with walker or a cane. Is not bedbound. DCP is for home. No d/c needs at present time. Addendum: 04/19/24 at 1727 by JEAN MARIE RIBEIRO RN Amended: Links added.
[2024-04-20] VITALS (8 sets, daily range): BP systolic 94–133; BP diastolic 57–77; PULSE 65–111; RESP 18–22; TEMP 98–99.5; O2SAT 92–94
[2024-04-20 05:27] LABS: BASOPHILS # (AUTO) 0.03 K/uL (0.00-0.20); BASOPHILS % (AUTO) 0.4 % (0.0-5.0); EOSINOPHILS # (AUTO) 0.07 K/uL (0.00-0.70); EOSINOPHILS % (AUTO) 0.9 % (0.0-8.0); HEMATOCRIT 36.1 % (42-54); IMMATURE GRANULOCYTE ABSOLUTE 0.03 K/uL (0-1); LYMPHOCYTES % (AUTO) 12.7 % (21.0-51.0); MEAN CORPUSCULAR HEMOGLOBIN 30.6 pg (27.0-33.0); MEAN CORPUSCULAR HGB CONC 33.2 g/dL (32.0-36.0); MEAN CORPUSCULAR VOLUME 92.1 fL (79-99); MONOCYTES # (AUTO) 0.9 K/uL (0.1-1.0); MONOCYTES % (AUTO) 11.2 % (3.0-13.0); NEUTROPHILS # (AUTO) 5.7 K/uL (1.8-7.7); NEUTROPHILS % (AUTO) 74.4 % (40.0-77.0); PLATELET COUNT (AUTO) 104 K/uL (130-400); RED BLOOD CELL COUNT(AUTO) 3.92 MIL/uL (4.50-6.20); RED CELL DISTRIBUTION WIDTH 13.6 % (11.0-15.5); WHITE BLOOD COUNT (AUTO) 7.7 K/uL (4.8-10.8)
[2024-04-20 05:35] LABS: POTASSIUM 3.7 mmol/L (3.5-5.1)
[2024-04-20] MEDS: doCUSate SODIUM 100 MG CAP PO PRN (07:33)
--- NOTE | 2024-04-20 08:16 | PN ---
[facility] PROGRESS NOTE Date of Visit: Apr 20, 2024 Time of Visit: 08:15 Events / Notes: [68 yo patient with hx of rectal cancer and ileostomy in place who underwent a closure of ileostomy with small bowel resection. He is doing well this am. VSS. He is hemodynamically stable. BBS are clear. He is on O2 via nc at 2l/min. Abd is soft but tender to stoma incision site. Active bs present. He has tolerated clear fluids. Poc discussed and encouraged ambulation. Will have PT assist. Patient and spouse agree. ] 04/20/24: NO acute events overnight. VSS. Tolerating diet. Has ambulated. ABD soft and not distended. Active BS present. Has not passed flatus. Encouraged ambulation today. He and spouse agree. Review of Systems: CONSTITUTIONAL: No malaise or change in sensation of wellbeing. ENMT: No rhinorrhea, otorrhea, sinus pain, ear ache. CARDIOVASCULAR: No angina, palpitations, orthopnea or paroxysmal dyspnea. RESPIRATORY: No SOB. GASTROINTESTINAL: No abdominal pain, nausea, vomiting, diarrhea, hematemesis, melena or change in the patient's habitual bowel movements consistency/number. GENITOURINARY: No dysuria, hematuria or change in bladder continence. MUSCULOSKELETAL: No new muscle pain or decrease in muscular strength. No new joint swelling, redness or tenderness. SKIN: No new rash. Physical Exam: GEN: Awake, alert, oriented in person, time and place, and in no acute distress. HEENT: No rhinorrhea. Oral pharyngeal mucosa is pink, moist and within normal limits. Neck is supple CHEST: Inspection, palpation of the chest were unremarkable. Lung auscultation revealed normal breath sounds bilaterally. CARDIAC: PMI is within normal limits. Heart sounds are regular. ABD: Soft, non-tender and not distended. No peritoneal signs on palpation. No organomegaly. Normal bowel sounds. Stoma site incision dry and intact. EXT: No cyanosis or clubbing. No edema. SKIN: Intact. No rashes. JOINTS: No evidence of synovitis or acute arthritis. NEURO: Alert and oriented to name, place and person. No focal motor deficits. Normal speech. Strength is normal. Vital Signs (last 8hr) Date Time Temp Pulse Resp B/P (MAP) Pulse Ox O2 Delivery O2 Flow Rate FiO2 04/20/24 04:00 98.1 65 20 116/74 97 Room Air Laboratory: [ ] Laboratory: Test 04/20/24 04:47 04/19/24 05:18 04/19/24 04:35 Range/Units White Blood Count 7.7 4.8-10.8 K/uL Red Blood Count 3.92 L 4.50-6.20 MIL/uL Hemoglobin 12.0 L 14.0-18.0 g/dL Hematocrit 36.1 L 42-54 % Mean Corpuscular Volume 92.1 79-99 fL Mean Corpuscular Hemoglobin 30.6 27.0-33.0 pg Mean Corpuscular Hemoglobin Concent 33.2 32.0-36.0 g/dL Red Cell Distribution Width 13.6 11.0-15.5 % Platelet Count 104 #L 130-400 K/uL Mean Platelet Volume 10.1 7.5-10.5 fL Immature Granulocyte % (Auto) 0.4 0-1 % Neutrophils (%) (Auto) 74.4 40.0-77.0 % Lymphocytes (%) (Auto) 12.7 L 21.0-51.0 % Monocytes (%) (Auto) 11.2 3.0-13.0 % Eosinophils (%) (Auto) 0.9 0.0-8.0 % Basophils (%) (Auto) 0.4 0.0-5.0 % Neutrophils # (Auto) 5.7 1.8-7.7 K/uL Lymphocytes # (Auto) 1.0 1.0-4.8 K/uL Monocytes # (Auto) 0.9 0.1-1.0 K/uL Eosinophils # (Auto) 0.07 0.00-0.70 K/uL Basophils # (Auto) 0.03 0.00-0.20 K/uL Absolute Immature Granulocyte (auto 0.03 0-1 K/uL Nucleated Red Blood Cells 0.0 0.0-0.19 % Sodium Level 142 136-145 mmol/L Potassium Level 3.7 3.5-5.1 mmol/L Chloride Level 106 101-111 mmol/L Carbon Dioxide Level 32 21-32 mmol/L Blood Urea Nitrogen 16 7-18 mg/dL Creatinine 1.0 0.5-1.3 mg/dL Glomerular Filtration Rate Calc 82 >90 mL/min Random Glucose 92 70-105 mg/dL Total Calcium 8.5 8.5-10.1 mg/dL Whole Blood Glucose 120 H 70-110 MG/DL White Cell Morphology Comment See comments Magnesium Level 2.50 H 1.80-2.40 mg/dL Total Bilirubin 1.2 #H 0.2-1.0 mg/dL Aspartate Amino Transf (AST/SGOT) 22 10-37 U/L Alanine Aminotransferase (ALT/SGPT) 16 # 12-78 U/L Alkaline Phosphatase 101 50-136 U/L Total Protein 6.5 6.0-8.3 g/dL Albumin 3.4 L 3.5-5.0 g/dL Current Medications Medications (Trade) Dose Ordered Sig/Dilan Route PRN Reason Start Time Stop Time Status Last Admin Dose Admin Acetaminophen (TYLenol 325MG TAB) 650 mg Q6H PO 04/18/24 14:00 05/18/24 13:59 04/19/24 15:00 650 MG Acetaminophen (TYLenol 325MG TAB) 650 mg Q6H PRN PO MILD PAIN (1-3) 04/18/24 16:00 05/18/24 15:59 Acetaminophen/ Hydrocodone Bitart (NORco 5/325MG) 1 tab Q4H PRN PO MODERATE PAIN (4-6) 04/18/24 14:00 04/18/24 13:41 DC Atorvastatin Calcium (LIPItor 10MG) 5 mg HS PO 04/18/24 21:00 05/18/24 20:59 04/19/24 21:14 5 MG Carbidopa/Levodopa (Carbidopa-Levo Er 50-200 Tab) 1 each TID PO 04/18/24 21:00 05/18/24 20:59 04/20/24 07:34 1 EACH Docusate Sodium (COLace 100MG CAP) 100 mg BID PRN PO CONSTIPATION 04/18/24 16:00 05/18/24 15:59 04/20/24 07:33 100 MG Enoxaparin Sodium (Lovenox) 40 mg DAILY SQ 04/19/24 09:00 05/19/24 08:59 04/20/24 07:35 40 MG Home Med (Home Medication) Citalopram Hydrobromide 10 MG AM PO 04/19/24 09:00 05/19/24 08:59 Home Med (Home Medication) Mirabegron (Myrbetriq) 25 MG AM PO 04/19/24 09:00 05/19/24 08:59 Hydralazine HCl (APRESOLine 20MG INJ) 5 mg Q6H PRN IV ADMINISTER FOR SBP > 160 04/18/24 16:00 05/18/24 15:59 Hydromorphone HCl (DiLAUDid 0.5MG INJ) 0.5 mg Q6H PRN IVP SEVERE PAIN (7-10) 04/18/24 14:00 04/23/24 13:59 04/20/24 04:45 0.5 MG Insulin Human Regular (humuLIN R 100 UNIT/ML 3ML) AD PRN SQ SLIDING SCALE COVERAGE 04/18/24 14:00 05/18/24 13:59 Lactated Ringer's 1,000 ml @ 50 mls/hr Q20H IV 04/18/24 14:00 05/18/24 13:59 04/20/24 00:29 50 MLS/HR Levetiracetam (kepPRA 500 MG TABLET) 500 mg BID PO 04/18/24 21:00 05/18/24 20:59 04/20/24 07:34 500 MG Lisinopril (Prinivil 10mg) 10 mg DAILY PO 04/19/24 09:00 05/19/24 08:59 04/20/24 07:36 10 MG Magnesium Sulfate 50 ml @ 0 mls/hr PROTOCOL PRN IV hypomagnesemia 04/18/24 16:00 05/18/24 15:59 04/19/24 02:33 25 MLS/HR Ondansetron HCl (zoFRAN 4MG INJ) 4 mg Q4H PRN IVP NAUSEA 04/18/24 14:00 05/18/24 13:59 Ondansetron HCl (zoFRAN 4MG INJ) 4 mg Q6H PRN IVP NAUSEA/VOMITING 04/18/24 16:00 04/18/24 16:07 DC Oxycodone HCl (ROXicoDONE) 5 mg Q6H PRN PO MODERATE PAIN (4-6) 04/18/24 14:00 04/25/24 13:59 04/20/24 07:34 5 MG Potassium Chloride 100 ml @ 100 mls/hr AD PRN IV POTASSIUM PROTOCOL 04/18/24 16:00 05/18/24 15:59 Potassium Chloride (K-Dur/Klor-Con 20meq) 20 meq AD PRN PO POTASSIUM PROTOCOL 04/18/24 16:00 05/18/24 15:59 Potassium Chloride (KCl 10% Elixir 20meq/15ml) 20 meq AD PRN PO POTASSIUM PROTOCOL 04/18/24 16:00 05/18/24 15:59 ] Assessment: [ILEOSTOMY STATUS HX of rectal cancer ] Plan: [Advance diet Encourage ambulation Encourage I/S exercises Pain meds as needed Antiemetics prn and report any vomiting Begin removing 1-2 inches if wick packing, clean incision with NS and change dressing daily Plan for disposition in the next 24-48 hours Appreciate hospitalist's assistance. ] ZEFERINO GARCIA NP Apr 20, 2024 08:16
--- NOTE | 2024-04-20 11:34 | PN ---
[facility] PROGRESS NOTE Date of Service: Apr 20, 2024 Time of Service: 11:26 SUBJECTIVE: 04/19 - patient seen at bedside, continues to advance diet as tolerated, encourage ambulation, IS exercises, adequate pain control, begin removing 1-2 inches of wick packing, clean incision with normal saline and change dressings daily. Patient is afebrile normotensive saturating well on room air. Labs were within normal limits electrolytes unremarkable periods we will continue to medically manage and follow recommendations per surgery. 04/20 - patient seen at bedside. No overnight acute events. Patient is afebrile, normotensive, HR 73, RR 20 saturating well on room air. Patient is s/p day 2 ileostomy closure with small bowel resection. On physical exam patient abdomen is soft and nondistended, positive for bowel sounds, negative flatus and BM. Patient encouraged to ambulate. Patient received Colace 100 mg BID. Remarkable labs: white count 7.7, Hgb 12, Ht 36.1, electrolytes WNL. Patient on CLD. 1-2 inches of wick packing have been removed and dressing changed. We will continue to monitor and medically manage. We will follow recommendations per surgery. REVIEW OF SYSTEMS CONSTITUTIONAL: Denies fevers, chills, or night sweats. No unintentional weight loss reported. NEUROLOGICAL: Denies headache, amaurosis fugax, motor weakness, sensory deficit, vertigo/spinning sensation, gait abnormalities, or tremors. ENT: No hearing loss, otalgia, otorrhea, rhinitis, rhinorrhea, hoarseness, or sore throat. CARDIOVASCULAR: Denies any exertional angina, dyspnea on exertion, orthopnea, paroxysmal nocturnal dyspnea, palpitations, life-threatening arrhythmias, claudication. PULMONARY: Denies any shortness of breath, cough, phlegm/sputum, hemoptysis, pleuritic chest pain. SLEEP: Denies morning headaches, daytime somnolence or napping. Denies difficulty falling asleep, staying asleep, waking from sleep. Denies knowledge of snoring. GASTROINTESTINAL: Denies any type of dysphagia to either liquids or solids. Denies nausea, vomiting, pyrosis, early satiety, abdominal pain, diarrhea, constipation, or changes in stool consistency or caliber. Denies coffee-ground emesis, hematemesis, hematochezia, or melanotic stools. GENITOURINARY: Denies frequency, urgency, nocturia, hematuria or incontinence (Storage/Irritative symptoms.) Low urinary stream, straining to void, urinary intermittency or hesitancy, splitting of the voiding stream, terminal dribbling. ENDOCRINOLOGIC: Denies polyuria, polydipsia, polyphagia or heat/cold intolerances. HEMATOLOGIC: Denies thrombophilia/previous clots, or coagulopathy/bleeding disorders. ONCOLOGIC: Denies personal history of malignancy. DERMATOLOGIC: Denies rashes or pruritus. PSYCHIATRIC: Denies any suicidal or homicidal ideation. Denies hallucinations. PHYSICAL EXAM GENERAL APPEARANCE: The patient is awake, alert, and oriented, in no acute cardiopulmonary distress. NEUROLOGICAL: Cranial nerves II-XII grossly intact. Motor is 5/5 in bilateral upper and lower extremities proximal to distal. No sensory deficits. HEENT: Face is symmetric. Pupils are equal and reactive. Extraocular movements are intact. NECK: Supple. No JVD. No thyromegaly. No submental, submandibular, pre- /postauricular, occipital or supraclavicular lymphadenopathy. CHEST: Normal chest expansion. No Telemetry. LUNGS: Absence of any rales, rhonchi or any wheezing. CARDIOVASCULAR: Regular. S1 and S2 normal. No appreciable rubs, murmurs or gallops. ABDOMEN: Soft, nontender, and nondistended. There is no rebound, voluntary guarding, or rigidity. : Deferred. No Stallworth. EXTREMITIES: Non-edematous and not cyanotic. No clubbing. Good capillary refill. SKIN: No skin breakdown. Vital Signs (last 8hr) Date Time Temp Pulse Resp B/P (MAP) Pulse Ox O2 Delivery O2 Flow Rate FiO2 04/20/24 08:37 98.1 73 20 133/77 92 Room Air 04/20/24 08:00 92 Room Air* 0 21 04/20/24 04:00 98.1 65 20 116/74 97 Room Air LABS: Laboratory: Test 04/20/24 04:47 04/19/24 05:18 04/19/24 04:35 Range/Units White Blood Count 7.7 4.8-10.8 K/uL Red Blood Count 3.92 L 4.50-6.20 MIL/uL Hemoglobin 12.0 L 14.0-18.0 g/dL Hematocrit 36.1 L 42-54 % Mean Corpuscular Volume 92.1 79-99 fL Mean Corpuscular Hemoglobin 30.6 27.0-33.0 pg Mean Corpuscular Hemoglobin Concent 33.2 32.0-36.0 g/dL Red Cell Distribution Width 13.6 11.0-15.5 % Platelet Count 104 #L 130-400 K/uL Mean Platelet Volume 10.1 7.5-10.5 fL Immature Granulocyte % (Auto) 0.4 0-1 % Neutrophils (%) (Auto) 74.4 40.0-77.0 % Lymphocytes (%) (Auto) 12.7 L 21.0-51.0 % Monocytes (%) (Auto) 11.2 3.0-13.0 % Eosinophils (%) (Auto) 0.9 0.0-8.0 % Basophils (%) (Auto) 0.4 0.0-5.0 % Neutrophils # (Auto) 5.7 1.8-7.7 K/uL Lymphocytes # (Auto) 1.0 1.0-4.8 K/uL Monocytes # (Auto) 0.9 0.1-1.0 K/uL Eosinophils # (Auto) 0.07 0.00-0.70 K/uL Basophils # (Auto) 0.03 0.00-0.20 K/uL Absolute Immature Granulocyte (auto 0.03 0-1 K/uL Nucleated Red Blood Cells 0.0 0.0-0.19 % Sodium Level 142 136-145 mmol/L Potassium Level 3.7 3.5-5.1 mmol/L Chloride Level 106 101-111 mmol/L Carbon Dioxide Level 32 21-32 mmol/L Blood Urea Nitrogen 16 7-18 mg/dL Creatinine 1.0 0.5-1.3 mg/dL Glomerular Filtration Rate Calc 82 >90 mL/min Random Glucose 92 70-105 mg/dL Total Calcium 8.5 8.5-10.1 mg/dL Whole Blood Glucose 120 H 70-110 MG/DL White Cell Morphology Comment See comments Magnesium Level 2.50 H 1.80-2.40 mg/dL Total Bilirubin 1.2 #H 0.2-1.0 mg/dL Aspartate Amino Transf (AST/SGOT) 22 10-37 U/L Alanine Aminotransferase (ALT/SGPT) 16 # 12-78 U/L Alkaline Phosphatase 101 50-136 U/L Total Protein 6.5 6.0-8.3 g/dL Albumin 3.4 L 3.5-5.0 g/dL Current Medications Medications (Trade) Dose Ordered Sig/Dilan Route PRN Reason Start Time Stop Time Status Last Admin Dose Admin Acetaminophen (TYLenol 325MG TAB) 650 mg Q6H PO 04/18/24 14:00 05/18/24 13:59 04/19/24 15:00 650 MG Acetaminophen (TYLenol 325MG TAB) 650 mg Q6H PRN PO MILD PAIN (1-3) 04/18/24 16:00 05/18/24 15:59 Acetaminophen/ Hydrocodone Bitart (NORco 5/325MG) 1 tab Q4H PRN PO MODERATE PAIN (4-6) 04/18/24 14:00 04/18/24 13:41 DC Atorvastatin Calcium (LIPItor 10MG) 5 mg HS PO 04/18/24 21:00 05/18/24 20:59 04/19/24 21:14 5 MG Carbidopa/Levodopa (Carbidopa-Levo Er 50-200 Tab) 1 each TID PO 04/18/24 21:00 05/18/24 20:59 04/20/24 07:34 1 EACH Docusate Sodium (COLace 100MG CAP) 100 mg BID PRN PO CONSTIPATION 04/18/24 16:00 05/18/24 15:59 04/20/24 07:33 100 MG Enoxaparin Sodium (Lovenox) 40 mg DAILY SQ 04/19/24 09:00 05/19/24 08:59 04/20/24 07:35 40 MG Home Med (Home Medication) Citalopram Hydrobromide 10 MG AM PO 04/19/24 09:00 05/19/24 08:59 Home Med (Home Medication) Mirabegron (Myrbetriq) 25 MG AM PO 04/19/24 09:00 05/19/24 08:59 Hydralazine HCl (APRESOLine 20MG INJ) 5 mg Q6H PRN IV ADMINISTER FOR SBP > 160 04/18/24 16:00 05/18/24 15:59 Hydromorphone HCl (DiLAUDid 0.5MG INJ) 0.5 mg Q6H PRN IVP SEVERE PAIN (7-10) 04/18/24 14:00 04/23/24 13:59 04/20/24 04:45 0.5 MG Insulin Human Regular (humuLIN R 100 UNIT/ML 3ML) AD PRN SQ SLIDING SCALE COVERAGE 04/18/24 14:00 05/18/24 13:59 Lactated Ringer's 1,000 ml @ 50 mls/hr Q20H IV 04/18/24 14:00 05/18/24 13:59 04/20/24 00:29 50 MLS/HR Levetiracetam (kepPRA 500 MG TABLET) 500 mg BID PO 04/18/24 21:00 05/18/24 20:59 04/20/24 07:34 500 MG Lisinopril (Prinivil 10mg) 10 mg DAILY PO 04/19/24 09:00 05/19/24 08:59 04/20/24 07:36 10 MG Magnesium Sulfate 50 ml @ 0 mls/hr PROTOCOL PRN IV hypomagnesemia 04/18/24 16:00 05/18/24 15:59 04/19/24 02:33 25 MLS/HR Ondansetron HCl (zoFRAN 4MG INJ) 4 mg Q4H PRN IVP NAUSEA 04/18/24 14:00 05/18/24 13:59 Ondansetron HCl (zoFRAN 4MG INJ) 4 mg Q6H PRN IVP NAUSEA/VOMITING 04/18/24 16:00 04/18/24 16:07 DC Oxycodone HCl (ROXicoDONE) 5 mg Q6H PRN PO MODERATE PAIN (4-6) 04/18/24 14:00 04/25/24 13:59 04/20/24 07:34 5 MG Potassium Chloride 100 ml @ 100 mls/hr AD PRN IV POTASSIUM PROTOCOL 04/18/24 16:00 05/18/24 15:59 Potassium Chloride (K-Dur/Klor-Con 20meq) 20 meq AD PRN PO POTASSIUM PROTOCOL 04/18/24 16:00 05/18/24 15:59 Potassium Chloride (KCl 10% Elixir 20meq/15ml) 20 meq AD PRN PO POTASSIUM PROTOCOL 04/18/24 16:00 05/18/24 15:59 DIAGNOSTICS / RADIOLOGY: [ ] ASSESSMENT: Malignant neoplasm of rectum, status post closure of ileostomy small bowel resection POA Enterostomy complication, POA Parkinson's disease, POA depression, POA, HTN, POA HLD, POA seizure disorder, POA history of rectal cancer PLAN: medical floor Status post ileostomy closure and small bowel resection follow postop recommendations from surgeon Continue with pain management morning labs in a.m. GI and DVT prophylaxis Patient is a full code ADVANCED CARE PLANNING 1. Which of the following were discussed? Hospice Care - Yes / No Therapeutic options - Yes / No Advance Directives - Yes / No Other discussions - 2. Discussed with who? Full code 3. Voluntary nature of this service was explained to the patient? Yes / No 4. Amount of time spent - __20 mins 5. Reviewed by Physician? (if this service was performed by NPP) Yes / No ATTESTATION BY PHYSICIAN I have seen and examined the patient. I reviewed the documentation, medical decision making, and treatment plan as noted by the resident provider above. I agree with the findings and plan of care. Holland Pruitt MD, PRIYA N Apr 20, 2024 11:34
--- NOTE | 2024-04-20 16:51 | NUR ---
Endorsed to Nursing ambulating well on his own Addendum: 04/20/24 at 1652 by CARLOS JOHNS, FAMILY PRESERVATION OFFICER PT Amended: Links added.
--- NOTE | 2024-04-20 20:00 | NUR ---
MEDS SHIFT ASSESSMENT DONE, PLEASE REFER TO CHART. PT COMPLAINTS POST OP PAINS. MEDICATED WITH TYLENOL PO FOR PAINS AND DUE MEDS ADMINISTERED, TOLERATED WELL. KEPT RESTED AND COMFORTABLE IN BED WITH HOB. CALL LIGHT WITHIN REACH. BED ALARM ACTIVATED. FAMILY AT BEDSIDE. WILL RE-ASSESS PT.
[2024-04-21] VITALS: BP 106/74; PULSE 66; RESP 18; TEMP 98
[2024-04-21 04:00] VITALS: BP 108/64; PULSE 67; RESP 18; TEMP 97.9
--- NOTE | 2024-04-21 04:28 | NUR ---
PAIN PT WALKED TO THE RESTROOM THEN BACK TO BED, ASSISTED BY FAMILY. COMPLAINTS OF SX WOUND PAIN AFTER WALKING. MEDICATED WITH OXYCODONE PO FOR PAIN. KEPT RESTED AND COMFORTABLE. WILL RE-ASSESS PT.
[2024-04-21 05:50] LABS: BASOPHILS # (AUTO) 0.02 K/uL (0.00-0.20); BASOPHILS % (AUTO) 0.3 % (0.0-5.0); EOSINOPHILS # (AUTO) 0.11 K/uL (0.00-0.70); EOSINOPHILS % (AUTO) 1.7 % (0.0-8.0); HEMATOCRIT 35.4 % (42-54); IMMATURE GRANULOCYTE ABSOLUTE 0.03 K/uL (0-1); LYMPHOCYTES # (AUTO) 0.9 K/uL (1.0-4.8); LYMPHOCYTES % (AUTO) 13.1 % (21.0-51.0); MEAN CORPUSCULAR HEMOGLOBIN 30.2 pg (27.0-33.0); MEAN CORPUSCULAR HGB CONC 32.8 g/dL (32.0-36.0); MEAN CORPUSCULAR VOLUME 92.2 fL (79-99); MONOCYTES # (AUTO) 0.9 K/uL (0.1-1.0); MONOCYTES % (AUTO) 13.9 % (3.0-13.0); NEUTROPHILS # (AUTO) 4.6 K/uL (1.8-7.7); NEUTROPHILS % (AUTO) 70.5 % (40.0-77.0); PLATELET COUNT (AUTO) 103 K/uL (130-400); RED BLOOD CELL COUNT(AUTO) 3.84 MIL/uL (4.50-6.20); RED CELL DISTRIBUTION WIDTH 13.5 % (11.0-15.5); WHITE BLOOD COUNT (AUTO) 6.5 K/uL (4.8-10.8)
[2024-04-21 06:03] LABS: CREATININE 0.9 mg/dL (0.5-1.3); POTASSIUM 3.8 mmol/L (3.5-5.1)
[2024-04-21 08:00] VITALS: BP 117/74; PULSE 87; RESP 19; TEMP 98.6; O2SAT 94
--- NOTE | 2024-04-21 08:34 | DS ---
Problems: (1) Ileostomy status Discharge Summary Hospital Course vss. Patient is tolerating his diet well. No n/v. BBS clear. Abdomen is soft and not distended. Active BS present. + BM x 2 reported. Plan for discharge today. Home care instructions given with ER warnings. He is to f/u at [facility] on 05/05/24 at [facility]. He verbalized understanding and agreement. ZEFERINO GARCIA NP Apr 21, 2024 08:34
--- NOTE | 2024-04-21 09:01 | PN ---
[facility] PROGRESS NOTE Date of Service: Apr 21, 2024 Time of Service: 08:54 SUBJECTIVE: 04/19 - patient seen at bedside, continues to advance diet as tolerated, encourage ambulation, IS exercises, adequate pain control, begin removing 1-2 inches of wick packing, clean incision with normal saline and change dressings daily. Patient is afebrile normotensive saturating well on room air. Labs were within normal limits electrolytes unremarkable periods we will continue to medically manage and follow recommendations per surgery. 04/20 - patient seen at bedside. No overnight acute events. Patient is afebrile, normotensive, HR 73, RR 20 saturating well on room air. Patient is s/p day 2 ileostomy closure with small bowel resection. On physical exam patient abdomen is soft and nondistended, positive for bowel sounds, negative flatus and BM. Patient encouraged to ambulate. Patient received Colace 100 mg BID. Remarkable labs: white count 7.7, Hgb 12, Ht 36.1, electrolytes WNL. Patient on CLD. 1-2 inches of wick packing have been removed and dressing changed. We will continue to monitor and medically manage. We will follow recommendations per surgery. 04/21 - Patient seen at bedside. No overnight acute events. Patient is afebrile, normotensive and saturating well on room air. Patient has active bowel sounds, abdomen is soft. Patient has had 2 bowel movements and is tolerating diet. Remarkable labs: white count WNL, H&H stable, electrolytes unremarkable. Patient has been cleared for discharge home today by surgery. REVIEW OF SYSTEMS CONSTITUTIONAL: Denies fevers, chills, or night sweats. No unintentional weight loss reported. NEUROLOGICAL: Denies headache, amaurosis fugax, motor weakness, sensory deficit, vertigo/spinning sensation, gait abnormalities, or tremors. ENT: No hearing loss, otalgia, otorrhea, rhinitis, rhinorrhea, hoarseness, or sore throat. CARDIOVASCULAR: Denies any exertional angina, dyspnea on exertion, orthopnea, paroxysmal nocturnal dyspnea, palpitations, life-threatening arrhythmias, claudication. PULMONARY: Denies any shortness of breath, cough, phlegm/sputum, hemoptysis, pleuritic chest pain. SLEEP: Denies morning headaches, daytime somnolence or napping. Denies difficulty falling asleep, staying asleep, waking from sleep. Denies knowledge of snoring. GASTROINTESTINAL: Denies any type of dysphagia to either liquids or solids. Denies nausea, vomiting, pyrosis, early satiety, abdominal pain, diarrhea, constipation, or changes in stool consistency or caliber. Denies coffee-ground emesis, hematemesis, hematochezia, or melanotic stools. GENITOURINARY: Denies frequency, urgency, nocturia, hematuria or incontinence (Storage/Irritative symptoms.) Low urinary stream, straining to void, urinary intermittency or hesitancy, splitting of the voiding stream, terminal dribbling. ENDOCRINOLOGIC: Denies polyuria, polydipsia, polyphagia or heat/cold intolerances. HEMATOLOGIC: Denies thrombophilia/previous clots, or coagulopathy/bleeding disorders. ONCOLOGIC: Denies personal history of malignancy. DERMATOLOGIC: Denies rashes or pruritus. PSYCHIATRIC: Denies any suicidal or homicidal ideation. Denies hallucinations. PHYSICAL EXAM GENERAL APPEARANCE: The patient is awake, alert, and oriented, in no acute cardiopulmonary distress. NEUROLOGICAL: Cranial nerves II-XII grossly intact. Motor is 5/5 in bilateral upper and lower extremities proximal to distal. No sensory deficits. HEENT: Face is symmetric. Pupils are equal and reactive. Extraocular movements are intact. NECK: Supple. No JVD. No thyromegaly. No submental, submandibular, pre- /postauricular, occipital or supraclavicular lymphadenopathy. CHEST: Normal chest expansion. No Telemetry. LUNGS: Absence of any rales, rhonchi or any wheezing. CARDIOVASCULAR: Regular. S1 and S2 normal. No appreciable rubs, murmurs or gallops. ABDOMEN: Soft, nontender, and nondistended. There is no rebound, voluntary guarding, or rigidity. : Deferred. No Stallworth. EXTREMITIES: Non-edematous and not cyanotic. No clubbing. Good capillary refill. tremors SKIN: No skin breakdown. Vital Signs (last 8hr) Date Time Temp Pulse Resp B/P (MAP) Pulse Ox O2 Delivery O2 Flow Rate FiO2 04/21/24 04:00 97.9 67 18 108/64 94 Room Air LABS: Laboratory: Test 04/21/24 05:21 04/21/24 05:07 Range/Units White Blood Count 6.5 4.8-10.8 K/uL Red Blood Count 3.84 L 4.50-6.20 MIL/uL Hemoglobin 11.6 L 14.0-18.0 g/dL Hematocrit 35.4 L 42-54 % Mean Corpuscular Volume 92.2 79-99 fL Mean Corpuscular Hemoglobin 30.2 27.0-33.0 pg Mean Corpuscular Hemoglobin Concent 32.8 32.0-36.0 g/dL Red Cell Distribution Width 13.5 11.0-15.5 % Platelet Count 103 L 130-400 K/uL Mean Platelet Volume 9.6 7.5-10.5 fL Immature Granulocyte % (Auto) 0.5 0-1 % Neutrophils (%) (Auto) 70.5 40.0-77.0 % Lymphocytes (%) (Auto) 13.1 L 21.0-51.0 % Monocytes (%) (Auto) 13.9 H 3.0-13.0 % Eosinophils (%) (Auto) 1.7 0.0-8.0 % Basophils (%) (Auto) 0.3 0.0-5.0 % Neutrophils # (Auto) 4.6 1.8-7.7 K/uL Lymphocytes # (Auto) 0.9 L 1.0-4.8 K/uL Monocytes # (Auto) 0.9 0.1-1.0 K/uL Eosinophils # (Auto) 0.11 0.00-0.70 K/uL Basophils # (Auto) 0.02 0.00-0.20 K/uL Absolute Immature Granulocyte (auto 0.03 0-1 K/uL Nucleated Red Blood Cells 0.0 0.0-0.19 % Sodium Level 139 136-145 mmol/L Potassium Level 3.8 3.5-5.1 mmol/L Chloride Level 104 101-111 mmol/L Carbon Dioxide Level 32 21-32 mmol/L Blood Urea Nitrogen 14 7-18 mg/dL Creatinine 0.9 0.5-1.3 mg/dL Glomerular Filtration Rate Calc 93 >90 mL/min Random Glucose 96 70-105 mg/dL Total Calcium 8.5 8.5-10.1 mg/dL Whole Blood Glucose 100 70-110 MG/DL Current Medications Medications (Trade) Dose Ordered Sig/Dilan Route PRN Reason Start Time Stop Time Status Last Admin Dose Admin Acetaminophen (TYLenol 325MG TAB) 650 mg Q6H PO 04/18/24 14:00 05/18/24 13:59 04/21/24 01:48 650 MG Acetaminophen (TYLenol 325MG TAB) 650 mg Q6H PRN PO MILD PAIN (1-3) 04/18/24 16:00 05/18/24 15:59 Acetaminophen/ Hydrocodone Bitart (NORco 5/325MG) 1 tab Q4H PRN PO MODERATE PAIN (4-6) 04/18/24 14:00 04/18/24 13:41 DC Atorvastatin Calcium (LIPItor 10MG) 5 mg HS PO 04/18/24 21:00 05/18/24 20:59 04/20/24 19:58 5 MG Carbidopa/Levodopa (Carbidopa-Levo Er 50-200 Tab) 1 each TID PO 04/18/24 21:00 05/18/24 20:59 04/20/24 19:58 1 EACH Docusate Sodium (COLace 100MG CAP) 100 mg BID PRN PO CONSTIPATION 04/18/24 16:00 05/18/24 15:59 04/20/24 19:57 100 MG Enoxaparin Sodium (Lovenox) 40 mg DAILY SQ 04/19/24 09:00 05/19/24 08:59 04/20/24 07:35 40 MG Home Med (Home Medication) Citalopram Hydrobromide 10 MG AM PO 04/19/24 09:00 05/19/24 08:59 Home Med (Home Medication) Mirabegron (Myrbetriq) 25 MG AM PO 04/19/24 09:00 05/19/24 08:59 Hydralazine HCl (APRESOLine 20MG INJ) 5 mg Q6H PRN IV ADMINISTER FOR SBP > 160 04/18/24 16:00 05/18/24 15:59 Hydromorphone HCl (DiLAUDid 0.5MG INJ) 0.5 mg Q6H PRN IVP SEVERE PAIN (7-10) 04/18/24 14:00 04/23/24 13:59 04/20/24 14:10 0.5 MG Insulin Human Regular (humuLIN R 100 UNIT/ML 3ML) AD PRN SQ SLIDING SCALE COVERAGE 04/18/24 14:00 05/18/24 13:59 Lactated Ringer's 1,000 ml @ 50 mls/hr Q20H IV 04/18/24 14:00 05/18/24 13:59 04/21/24 04:28 50 MLS/HR Levetiracetam (kepPRA 500 MG TABLET) 500 mg BID PO 04/18/24 21:00 05/18/24 20:59 04/20/24 19:57 500 MG Lisinopril (Prinivil 10mg) 10 mg DAILY PO 04/19/24 09:00 05/19/24 08:59 04/20/24 07:36 10 MG Magnesium Sulfate 50 ml @ 0 mls/hr PROTOCOL PRN IV hypomagnesemia 04/18/24 16:00 05/18/24 15:59 04/19/24 02:33 25 MLS/HR Ondansetron HCl (zoFRAN 4MG INJ) 4 mg Q4H PRN IVP NAUSEA 04/18/24 14:00 05/18/24 13:59 Ondansetron HCl (zoFRAN 4MG INJ) 4 mg Q6H PRN IVP NAUSEA/VOMITING 04/18/24 16:00 04/18/24 16:07 DC Oxycodone HCl (ROXicoDONE) 5 mg Q6H PRN PO MODERATE PAIN (4-6) 04/18/24 14:00 04/25/24 13:59 04/21/24 04:28 5 MG Potassium Chloride 100 ml @ 100 mls/hr AD PRN IV POTASSIUM PROTOCOL 04/18/24 16:00 05/18/24 15:59 Potassium Chloride (K-Dur/Klor-Con 20meq) 20 meq AD PRN PO POTASSIUM PROTOCOL 04/18/24 16:00 05/18/24 15:59 Potassium Chloride (KCl 10% Elixir 20meq/15ml) 20 meq AD PRN PO POTASSIUM PROTOCOL 04/18/24 16:00 05/18/24 15:59 DIAGNOSTICS / RADIOLOGY: [ ] ASSESSMENT: Malignant neoplasm of rectum, status post closure of ileostomy small bowel resection POA Enterostomy complication, POA Parkinson's disease, POA depression, POA, HTN, POA HLD, POA seizure disorder, POA history of rectal cancer PLAN: medical floor Status post ileostomy closure and small bowel resection follow postop recommendations from surgeon Continue with pain management GI and DVT prophylaxis Patient is a full code ADVANCED CARE PLANNING 1. Which of the following were discussed? Hospice Care - Yes / No Therapeutic options - Yes / No Advance Directives - Yes / No Other discussions - 2. Discussed with who? Full code 3. Voluntary nature of this service was explained to the patient? Yes / No 4. Amount of time spent - __20 mins 5. Reviewed by Physician? (if this service was performed by NPP) Yes / No ATTESTATION BY PHYSICIAN I have seen and examined the patient. I reviewed the documentation, medical decision making, and treatment plan as noted by the resident provider above. I agree with the findings and plan of care. Holland Pruitt MD, PRIYA N Apr 21, 2024 09:01
--- NOTE | 2024-04-21 11:03 | NUR ---
NOTE PT DRESSING CHANGED AT THIS TIME USING ASEPTIC TECHNIQUE, PT TOLERATED DRESSING CHANGE, FAMILY AT BEDSIDE, FAMIULY TAUGHT TO CHANGE DRESSING AND EDUCATED ON PACKING, IV REMOVED AT THIS TIME, PT DC'ED AT THIS TIME
== END 2024-04-21 11:15 | disposition home or self-care (01) | DRG 330 ==
LOC: DAHIP 04-18 09:09 → 3AH 04-18 16:15
PROVIDERS: ADMIT Surgery; ATTEND Surgery
PROC: 0DBB0ZZ Excision of Ileum, Open Approach (ICD-10-PCS; principal; 2024-04-18 11:29)
DX: K94.10 Enterostomy complication, unspecified (principal); C20 Malignant neoplasm of rectum; G20.A1 Parkinson's disease without dyskinesia, without mention of fluctuations; F32.A Depression, unspecified; I10 Essential (primary) hypertension; G40.909 Epilepsy, unspecified, not intractable, without status epilepticus; E78.5 Hyperlipidemia, unspecified; Z85.048 Personal history of other malignant neoplasm of rectum, rectosigmoid junction, and anus; Z86.0100 Personal history of colon polyps, unspecified; Z79.899 Other long term (current) drug therapy
CPT/HCPCS: 36415; 80048; 80053; 82948; 83735; 85025; 85027; 85610; 85730; 86850; 86900; 86901; 93005; A4344; A4606; G0378; J0330; J1100; J1171; J1650; J2003; J2185; J2250; J2405; J2704; J2710; J3010; J3475; J3490; J7120; A4215; A4216; A4221; A4222; A4223; A4600; A4663; A4930; A6260; J0665

== ENCOUNTER 2025-02-10 03:49 | Emergency (ER) | payer OTHER, MEDICARE ==
[~2025-02-10] VITALS: Ht 177.8 cm; Wt 99.8 kg
[~2025-02-10 03:49] MED LIST changes: -DIPH-1150 PO; +GABA-529 PO; +HYDR-3830 PO; +IBUP-1492 PO; +ISOS30TA92 PO; -LEVE500T19 PO; +LISI10TA24 PO; +OMEP40CA21 PO; +PRAV10TA37 PO; -PRAV10TA39 PO
--- NOTE | 2025-02-10 03:53 | NUR ---
FLU AND COVID SWABS COLLECTED AND SENT
--- NOTE | 2025-02-10 04:02 | NUR ---
FAMILY DENIES DIFFICULTY IN SWALLOWING PILLS
[2025-02-10 04:09] LABS: SARS-CoV-2, RNA, NAAT NEGATIVE SARS CoV-2 (NEGATIVE)
[2025-02-10 04:12] VITALS: TEMP 100.6
[2025-02-10 04:31] LABS: INFLUENZA TYPE A Negative For Type A (NEGATIVE); INFLUENZA TYPE B Negative For Type B (NEGATIVE)
--- NOTE | 2025-02-10 05:24 | ERN ---
ED Note History of Present Illness Stated Complaint: CHILLS, BODYACHES Chief Complaint: Flu Symptoms Time Seen by MD: 04:05 Dictation: This is a 69-year-old male who presented to the emergency room with complaints of flu-like symptoms with body aches and chills. They did not document a fever but yesterday he felt really sick to even get out of bed. He came in for further evaluation no other family members were sick no travel. No nausea vomitings diarrhea. No cough sputum or hemoptysis. He stated that he has chronic headaches but nothing new. No history of any rash. Temperature a 100.6 pulse 103 respirations 20 blood pressure 141 over 81 with a pulse oximetry of 96% on room air His chronic medical problems include Parkinson's disease, hypertension, hypercholesterolemia Allergies: Coded Allergies: No Known Allergies (Unverified Allergy, Unknown, 10/12/18) Home Meds Reported Medications Carbidopa/Levodopa (Carbidopa-Levo ER 50-200 Tab) 50 Mg-200 Mg Tablet.er, 1 EACH PO TID, TAB 11/08/24 Gabapentin (Gabapentin) 100 Mg Capsule, 300 MG PO PM, CAP 11/08/24 Ibuprofen (Ibuprofen) 600 Mg Tablet, 600 MG PO Q6H PRN for PAIN, TAB 11/08/24 Omeprazole (Omeprazole) 40 Mg Capsule.dr, 40 MG PO AM, CAP 11/08/24 Isosorbide Mononitrate (Isosorbide Mononitrate ER) 30 Mg Tab.er.24h, 30 MG PO AM, TAB 11/08/24 Hydroxyzine HCl (Hydroxyzine HCl) 10 Mg Tablet, 10 MG PO BID, TAB 11/08/24 Lisinopril (Lisinopril) 10 Mg Tablet, 1 TAB PO DAILY for 30 Days, #30 TAB 0 Refills 04/18/24 Baclofen (Baclofen) 5 Mg Tablet, 10 MG PO BID, TAB 12/29/23 Pravastatin Sodium (Pravastatin Sodium) 10 Mg Tablet, 10 MG PO HS, TAB 12/29/23 Aspirin (ASPIRIN 81 MG ECTAB) 81 Mg Ectab, 81 MG PO DAILY, TAB.EC 12/29/23 Citalopram Hydrobromide (Citalopram HBr) 10 Mg Tablet, 10 MG PO AM, TAB 12/29/23 Mirabegron (Myrbetriq) 25 Mg Tab.er.24h, 25 MG PO AM, TAB 12/29/23 Past Medical History Past Medical History: Cancer, High Cholesterol, Hypertension Additional Past Medical Hx: PARKINSON Surgical History: Other Surgical History Other: COLOSTOMY Social History: Lives with family RN Note Reviewed/Agreed w/PFSH: Yes Review of System Dictation Constitutional: Positive for subjective fever,chills, positive for body aches Eyes: Negative for injury, pain,redness, and discharge ENT: Negative for injury,pain or swelling Cardiovascular: Negative for chest pain, palpitations, and edema Respiratory: Negative for shortness of breath, cough, and wheezing, Abdomen/GI: Negative for abdominal pain, nausea, vomiting, diarrhea, and constipation Back: Negative for injury and pain : Negative for injury, bleeding and discharge MS/Extremity: Negative for injury and deformity Skin: Negative for rash, and discoloration Neuro: Negative for headache, weakness, numbness, tingling, and seizure Psych: Negative for suicide ideation, homicidal ideation, and hallucinations Initial Vital Sign VS Vital Signs Date Time Temp Pulse Resp B/P (MAP) Pulse Ox O2 Delivery O2 Flow Rate FiO2 02/10/25 03:51 100.6 103 20 141/81 96 Room Air 02/10/25 05:31 0 21 Physical Exam Dictation General: awake, alert, NAD morbidly obese Head/Face: Normocephalic, atraumatic Eyes: PERRL, EOMI, vision at baseline ENT: oral cavity clear, TMs clear, no signs of infection Neck: Trachea midline, supple, no nuchal rigidity Cardiovascular: RRR, normal S1/S2, No MRGs, no JVD Respiratory: CTAB, no respiratory distress, No rales or wheezes Abdomen: Soft, non-tender, non-distended, normal bowel sounds, no guarding or rebound. Skin: Warm, dry, normal turgor, no rash MS/Extremity: Pulses equal, no cyanosis, neurovascular intact, FROM Neuro: COAx4, GCS 15, strength 5/5, CN 2-12 intact, normal cerebellar exam, normal gait, Psych: Normal behavior, mood, and affect normal Extremities-trace edema without any palpable cords, Homans sign is negative Results (Laboratory/Radiology) Laboratory/Radiology Laboratory Tests Test 02/10/25 03:51 02/10/25 05:31 02/10/25 06:56 Influenza Type A Antigen Negative For Type A Influenza Type B Antigen Negative For Type B SARS-CoV-2, RNA, NAAT NEGATIVE SARS CoV-2 Urine Color YELLOW (YELLOW) Urine Appearance CLEAR (CLEAR) Urine pH 5.5 (5.0-8.0) Urine Specific [place] 1.038 (1.001-1.031) Urine Protein 10 mg/dL (NEGATIVE) H Urine Glucose (UA) NEGATIVE mg/dL (NEGATIVE) Urine Ketones 5 mg/dL (NEGATIVE) H Urine Occult Blood NEGATIVE (NEGATIVE) Urine Nitrate NEGATIVE (NEGATIVE) Urine Bilirubin NEGATIVE mg/dL (NEGATIVE) Urine Urobilinogen 2.0 mg/dL (0.2-1.0) H Urine Leukocyte Esterase NEGATIVE Emy/uL Urine RBC 0-1 /HPF (0-1) Urine WBC 0-1 /HPF (0-1) Urine Bacteria None /HPF (None Seen) White Blood Count 6.7 K/uL (4.8-10.8) Red Blood Count 4.44 MIL/uL (4.50-6.20) L Hemoglobin 12.8 g/dL (14.0-18.0) L Hematocrit 37.6 % (42-54) L Mean Corpuscular Volume 84.7 fL (79-99) Mean Corpuscular Hemoglobin 28.8 pg (27.0-33.0) Mean Corpuscular Hemoglobin Concent 34.0 g/dL (32.0-36.0) Red Cell Distribution Width 14.3 % (11.0-15.5) Platelet Count 106 K/uL (130-400) L Mean Platelet Volume 9.8 fL (7.5-10.5) Immature Granulocyte % (Auto) 0.5 % (0-1) Neutrophils (%) (Auto) 83.7 % (40.0-77.0) H Lymphocytes (%) (Auto) 5.7 % (21.0-51.0) L Monocytes (%) (Auto) 9.9 % (3.0-13.0) Eosinophils (%) (Auto) 0.0 % (0.0-8.0) Basophils (%) (Auto) 0.2 % (0.0-5.0) Neutrophils # (Auto) 5.6 K/uL (1.8-7.7) Lymphocytes # (Auto) 0.4 K/uL (1.0-4.8) L Monocytes # (Auto) 0.7 K/uL (0.1-1.0) Eosinophils # (Auto) 0.00 K/uL (0.00-0.70) Basophils # (Auto) 0.01 K/uL (0.00-0.20) Absolute Immature Granulocyte (auto 0.03 K/uL (0-1) Nucleated Red Blood Cells 0.0 % (0.0-0.19) White Cell Morphology Comment See comments Sodium Level 140 mmol/L (136-145) Potassium Level 3.7 mmol/L (3.5-5.1) Chloride Level 106 mmol/L (101-111) Carbon Dioxide Level 26 mmol/L (21-32) Blood Urea Nitrogen 16 mg/dL (7-18) Creatinine 0.7 mg/dL (0.5-1.3) Glomerular Filtration Rate Calc 100 mL/min (>90) Random Glucose 100 mg/dL (70-105) Lactic Acid Level 1.1 mmol/L (0.8-2.5) Total Calcium 8.1 mg/dL (8.5-10.1) L Total Bilirubin 1.2 mg/dL (0.2-1.0) H Aspartate Amino Transf (AST/SGOT) 12 U/L (10-37) Alanine Aminotransferase (ALT/SGPT) < 6 U/L (12-78) L Alkaline Phosphatase 79 U/L (50-136) Total Protein 6.1 g/dL (6.0-8.3) Albumin 3.3 g/dL (3.5-5.0) L Labs Reviewed?: Yes ED Course ED Course Orders Procedure Category Date Status Time Covid Rna Naat LAB 02/10/25 Complete 03:52 Influenza Type A & B, LAB 02/10/25 Complete Rapid 03:52 Acetaminophen 500mg PHA 02/10/25 Complete Tab (Tylenol 500mg T 04:00 Ketorolac PHA 02/10/25 Complete Tromethamine 30mg/Ml 05:00 0.9%Nacl 1000ml (Ns PHA 02/10/25 Complete 1000ml) 05:00 Urinalysis Profile LAB 02/10/25 Complete 04:54 Cbc With Differential LAB 02/10/25 Complete 06:41 Comprehensive LAB 02/10/25 Complete Metabolic Panel 06:41 Lactic Acid LAB 02/10/25 Complete 06:41 Current Medications Medications (Trade) Dose Ordered Sig/Dilan Route PRN Reason Start Time Stop Time Status Last Admin Dose Admin Acetaminophen (TYLenol 500MG TAB) 1,000 mg ONCE ONCE PO 02/10/25 04:00 02/10/25 04:01 DC 02/10/25 04:12 Ketorolac Tromethamine (toRADol) 30 mg ONCE ONCE IM 02/10/25 05:00 02/10/25 05:01 DC 02/10/25 05:36 Sodium Chloride 1,000 ml @ 0 mls/hr ONCE ONCE IV 02/10/25 05:00 02/10/25 05:01 DC 02/10/25 05:36 Vital Signs Date Time Temp Pulse Resp B/P (MAP) Pulse Ox O2 Delivery O2 Flow Rate FiO2 02/10/25 06:59 61 18 109/74 97 Room Air* 0 21 02/10/25 06:52 64 18 94/47 97 Room Air* 0 21 02/10/25 05:31 73 18 113/74 95 Room Air* 0 21 02/10/25 04:12 100.6 02/10/25 03:51 100.6 103 20 141/81 96 Room Air Medical Decision Making MDM MDM: Differential diagnosis: URI, sinusitis, flu, COVID Rationale: Tests considered and ordered secondary to shared decision making include: Previous outside records reviewed: Old ER visits. Risk of complication and/or morbidity or mortality of patient management: None Medications-Per medication reconciliation Need for hospitalization: Patient does not meet criteria for hospitalization. Need for emergency major/minor surgery: No Patient is a 69-year-old gentleman coming in complaining of flu-like symptoms. Laboratory workup negative for acute findings. Patient will be discharged in stable condition with a diagnosis of viral syndrome. DX & DISP Disposition: Discharge Departure Impression: Primary Impression: Viral syndrome Additional Impression: Sinusitis Condition: Stable Scripts Amoxicillin (Amoxicillin) 500 Mg Capsule 1 CAP PO TID for 10 Days, #30 CAP 0 Refills Prov: MARIUM VILLAGOMEZ MD 02/10/25 Additional Instructions: FOLLOW-UP WITH PRIMARY CARE PROVIDER IN 1 TO 2 DAYS. TAKE MEDICATIONS DIRECTED HERE IN THE EMERGENCY ROOM. OKAY TO CONTINUE HOME MEDICATIONS UNLESS OTHERWISE DISCUSSED DURING YOUR VISIT IN THE EMERGENCY ROOM TODAY. RETURN TO YOUR NEAREST EMERGENCY ROOM IF SYMPTOMS WORSEN OR IF THERE IS NO IMPROVEMENT. CALL 911 IF YOU NEED IMMEDIATE ASSISTANCE. TAKE TYLENOL [id number] NEEDED AND IF NO CONTRAINDICATIONS ARE PRESENT. INCREASE ORAL HYDRATION. A WOUND CULTURE OR URINE CULTURE WAS ORDERED HERE IN THE EMERGENCY ROOM DEPARTMENT PLEASE FOLLOW-UP WITH PRIMARY CARE PROVIDER AND ADVISE THEM TO GET REPORTS FROM OUR FACILITY. IF YOU HAD ANY STEFANIA WRAP/SPLINTS THAT WERE APPLIED HERE, PLEASE DO NOT REMOVE THEM UNTIL YOU SEE YOUR PRIMARY CARE OR SPECIALTY. Referrals: Referrals: SHANNAN NEW DO (PCP) Time of Disposition: 07:51 SARAH MATTHEWS MD Feb 10, 2025 05:23 MARIUM VILLAGOMEZ MD Feb 10, 2025 07:42
[2025-02-10] MEDS: 0.9%NACL 1000ML 1,000 ML IV ONE (05:36)
[2025-02-10 05:42] LABS: APPEARANCE,URINE CLEAR (CLEAR); GLUCOSE, URINE (UA) NEGATIVE (NEGATIVE); LEUKOCYTE ESTERASE ,URINE NEGATIVE Leu/uL (NEGATIVE); NITRATE,URINE NEGATIVE (NEGATIVE); OCCULT BLOOD,URINE NEGATIVE (NEGATIVE)
[2025-02-10 05:45] LABS: ADD UA MICROSCOPIC YES
[2025-02-10 07:05] LABS: IMMATURE GRANULOCYTE ABSOLUTE 0.03 K/uL (0-1); NUCLEATED RED BLOOD CELLS 0.0 % (0.0-0.19); PLATELET COUNT (AUTO) 106 K/uL (130-400); RED BLOOD CELL COUNT(AUTO) 4.44 MIL/uL (4.50-6.20); RED CELL DISTRIBUTION WIDTH 14.3 % (11.0-15.5); WHITE BLOOD COUNT (AUTO) 6.7 K/uL (4.8-10.8)
[2025-02-10 07:23] LABS: ASPARTATE AMINOTRANSFERASE 12 U/L (10-37); CREATININE 0.7 mg/dL (0.5-1.3); GLOMERULAR FILTR. RATE CALC 100 mL/min (>90); GLUCOSE,RANDOM 100 mg/dL (70-105); SODIUM SERUM 140 mmol/L (136-145); TOTAL PROTEIN, SERUM 6.1 g/dL (6.0-8.3); UREA NITROGEN, BLOOD 16 mg/dL (7-18)
[2025-02-10] MEDS ORDERED: AMOX500C2 PO (07:52)
[2025-02-10 07:54] VITALS: BP 105/69; PULSE 60; RESP 18; TEMP 98.9; O2SAT 96
== END 2025-02-10 08:04 | disposition home or self-care (01) ==
LOC: EDH 03:49
DX: B34.9 Viral infection, unspecified (principal); J32.9 Chronic sinusitis, unspecified; I10 Essential (primary) hypertension; E78.00 Pure hypercholesterolemia, unspecified; G20.A1 Parkinson's disease without dyskinesia, without mention of fluctuations; Z79.82 Long term (current) use of aspirin; Z79.899 Other long term (current) drug therapy; Z93.3 Colostomy status; Z20.822 Contact with and (suspected) exposure to COVID-19
CPT/HCPCS: 99283; 96360; 87635; 80053; 85025; 87804 ×2; 83605; 81001; 36415; 96372; J1885; J7030